=== PATIENT | male | born 1945 | race Caucasian/White ===

== ENCOUNTER → 2018-08-24 | Outpatient (CLI) | payer MEDICARE, OTHER ==
[~2018-08-24] MED LIST: ALLO100; ALLO300; Amlodipine Besyl5 MG PO; BYDUREON2 MG; BYDUREON2 MG SC; CEPH500; CEPH500 PO; CHOL10002 PO; CYAN1000 PO; Cinnamon500 MG; DIGO.25 PO; ELIQUIS2.5 MG PO; FERR325 PO; FISH1000; FURO40 PO; FURO80 PO; HYDR1TAB94; K-Dur20 MEQ PO; LAVAP17G; LISI20; LISI20 PO; METO25 PO; METO50; METO50 PO; Metoprolol Tar100 MG PO; Multiple Vitam1 EAC1 PO; NORT25 PO; POTA10T PO; TRAM50 PO; TRULICITY0.75 MG/0. SQ; Viagra100 MG PO; WARF5 PO; WARF7.5 PO; ZESTRIL40 MG PO; [UNRECOGNIZED DRUG - OTHER]; [UNRECOGNIZED DRUG - REMARK]
== END | disposition home or self-care (01) ==
LOC: LAB SHORT 17:19 → LAB EV 17:19
DX: R05 Cough (principal)
CPT/HCPCS: 83880

== ENCOUNTER 2018-09-09 19:22 | Emergency (ER) | payer MEDICARE, OTHER ==
[~2018-09-09] VITALS: Ht 177.8 cm; Wt 136.1 kg
[2018-09-09 20:12] LABS: BASOPHILS ABSOLUTE AUTO 0.03 K/mm3 (0.00-0.23); BASOPHILS PERCENT AUTO 0 % (0-2); EOSINOPHILS PERCENT AUTO 0 % (0-6); IMMATURE GRAN ABSOLUTE AUTO 0.11 K/mm3 (0.00-0.10); IMMATURE GRAN PERCENT AUTO 1 % (0-1); LYMPHOCYTES ABSOLUTE AUTO 0.79 K/mm3 (0.84-5.20); LYMPHOCYTES PERCENT AUTO 4 % (21-46); MONOCYTES ABSOLUTE AUTO 1.15 K/mm3 (0.16-1.47); MONOCYTES PERCENT AUTO 6 % (4-13); Mean Corpuscular HGB 30.4 pg (26.0-34.0); Mean Corpuscular HGB Conc 33.3 g/dL (31.5-36.5); Mean Corpuscular Volume 91 fL (80-100); Mean Platelet Volume 10.4 fL (9.1-12.4); NEUTROPHILS ABSOLUTE AUTO 18.74 K/mm3 (1.96-9.15); NEUTROPHILS PERCENT AUTO 90 % (41-73); Platelet Count 208 K/mm3 (150-400); RDW Coefficient Variation 15.7 % (11.7-14.2); RDW Standard Deviation 51.8 fL (35.1-46.3); Red Blood Cell Count 3.95 M/mm3 (4.30-5.90); White Blood Cell Count 20.82 K/mm3 (4.00-11.30)
[2018-09-09 20:30] LABS: Alanine Aminotransfer (ALT/SGP 20 U/L (12-78); Albumin, Blood 3.1 g/dL (3.4-5.0); Albumin/Globulin Ratio 0.6 (0.8-1.8); Alk Phos 102 U/L (50-136); Anion Gap 9 mmol/L (6-16); Aspartate Aminotrans (AST/SGOT 22 U/L (12-37); Blood Urea Nitrogen 23 mg/dL (8-24); Bun/Creatinine Ratio 30.1 (12.0-20.0); CO2, Blood 28 mmol/L (21-32); Calcium, Blood 8.9 mg/dL (8.5-10.1); Chloride, Blood 96 mmol/L (98-108); Creatinine, Blood 0.77 mg/dL (0.60-1.20); Globulin, Blood 5.1 g/dL (2.2-4.0); Glomerular Filtration Rate >60 (60-); Glucose, Blood 154 mg/dL (70-99); Potassium, Blood 3.5 mmol/L (3.5-5.5); Sodium, Blood 133 mmol/L (136-145); Total Protein, Blood 8.2 g/dL (6.4-8.2)
[2018-09-09 23:06] LABS: Source, Urine Clean Catch
[2018-09-09 23:10] LABS: Bilirubin, Urine Neg (Neg); Blood, Urine Neg (Neg); Glucose Qualitative, Urine Neg (Neg); Ketones, Urine Neg (Neg); Leukocyte Esterase, Urine 1+ (Neg); Nitrite, Urine Neg (Neg); Protein, Urine Neg (Neg); Urobilinogen, Urine NORM (Normal)
[2018-09-09 23:15] LABS: Appearance, Urine Clear (Clear); Color, Urine Yellow (P-Yellow)
[2018-09-09 23:17] LABS: Amorphous Light (0-Heavy); Bacteria Rare /hpf; Red Blood Cells, Urine Not Seen /hpf (0-2); Squamous Epithelial Cells Not Seen /hpf (Few)
[2018-09-09] MEDS ORDERED: Augmentin 500-1 EACH PO (23:44)
== END 2018-09-10 00:50 | disposition home or self-care (01) ==
LOC: ER 19:22
PROVIDERS: Physician Assistant
DX: J18.9 Pneumonia, unspecified organism (principal); R33.9 Retention of urine, unspecified; Z88.8 Allergy status to other drugs, medicaments and biological substances; Z79.899 Other long term (current) drug therapy; E11.9 Type 2 diabetes mellitus without complications; I10 Essential (primary) hypertension; E66.9 Obesity, unspecified
CPT/HCPCS: 51702; 51798; 71046; 80053; 81001; 85025; 94640

== ENCOUNTER 2018-11-11 21:32 | Inpatient (IN) | payer MEDICARE, OTHER ==
[~2018-11-11] VITALS: Ht 177.8 cm; Wt 136.4 kg
[~2018-11-11 21:32] MED LIST changes: -ALLO300; +ALLO300 PO; +Augmentin 500-1 EACH PO; -FERR325 PO; +Ferosul325 MG PO
[2018-11-11 21:53] LABS: BASOPHILS ABSOLUTE AUTO 0.02 K/mm3 (0.00-0.23); BASOPHILS PERCENT AUTO 0 % (0-2); EOSINOPHILS ABSOLUTE AUTO 0.01 K/mm3 (0.00-0.68); EOSINOPHILS PERCENT AUTO 0 % (0-6); Hematocrit 35.6 % (37.0-53.0); Hemoglobin 11.3 g/dL (13.5-17.5); IMMATURE GRAN ABSOLUTE AUTO 0.01 K/mm3 (0.00-0.10); IMMATURE GRAN PERCENT AUTO 0 % (0-1); LYMPHOCYTES ABSOLUTE AUTO 0.64 K/mm3 (0.84-5.20); LYMPHOCYTES PERCENT AUTO 13 % (21-46); MONOCYTES ABSOLUTE AUTO 0.66 K/mm3 (0.16-1.47); MONOCYTES PERCENT AUTO 13 % (4-13); Mean Corpuscular HGB Conc 31.7 g/dL (31.5-36.5); Mean Corpuscular Volume 94 fL (80-100); Mean Platelet Volume 10.7 fL (9.1-12.4); NEUTROPHILS ABSOLUTE AUTO 3.66 K/mm3 (1.96-9.15); NEUTROPHILS PERCENT AUTO 73 % (41-73); Platelet Count 135 K/mm3 (150-400); RDW Coefficient Variation 15.9 % (11.7-14.2); RDW Standard Deviation 55.3 fL (35.1-46.3); Red Blood Cell Count 3.77 M/mm3 (4.30-5.90)
[2018-11-11] MEDS ORDERED: PYRI100 PO (21:55)
[2018-11-11] MEDS ORDERED: ASCO500 PO (21:56)
[2018-11-11] MEDS ORDERED: TURMERIC500 M2 PO (21:56)
[2018-11-11] MEDS ORDERED: Fish Oil Conc1000 MG PO (21:56)
[2018-11-11] MEDS ORDERED: VITAMIN B-1100 MG PO (21:57)
[2018-11-11 22:08] LABS: Alanine Aminotransfer (ALT/SGP 23 U/L (12-78); Albumin, Blood 3.1 g/dL (3.4-5.0); Albumin/Globulin Ratio 0.7 (0.8-1.8); Alk Phos 69 U/L (50-136); Anion Gap 5 mmol/L (6-16); Aspartate Aminotrans (AST/SGOT 28 U/L (12-37); Bilirubin, Total 0.8 mg/dL (0.1-1.0); Blood Urea Nitrogen 17 mg/dL (8-24); Bun/Creatinine Ratio 19.5 (12.0-20.0); CO2, Blood 32 mmol/L (21-32); Calcium, Blood 8.3 mg/dL (8.5-10.1); Chloride, Blood 101 mmol/L (98-108); Creatinine, Blood 0.87 mg/dL (0.60-1.20); Globulin, Blood 4.4 g/dL (2.2-4.0); Glomerular Filtration Rate >60 (60-); Glucose, Blood 118 mg/dL (70-99); Potassium, Blood 3.2 mmol/L (3.5-5.5); Sodium, Blood 138 mmol/L (136-145); Total Protein, Blood 7.5 g/dL (6.4-8.2); Troponin I <0.015 ng/mL (0.000-0.040)
[2018-11-12] MEDS ORDERED: Aspir-Low81 MG PO (02:15)
[2018-11-12 04:28] LABS: Adenovirus Not Detected (NOT DETECT); Bordetella pertussis Not Detected (NOT DETECT); Chlamydophila pneumoniae Not Detected (NOT DETECT); Coronavirus 229E Not Detected (NOT DETECT); Coronavirus HKU1 Not Detected (NOT DETECT); Coronavirus NL63 Not Detected (NOT DETECT); Coronavirus OC43 Not Detected (NOT DETECT); Human Metapneumovirus Detected (NOT DETECT); Human Rhinovirus/Enterovirus Not Detected (NOT DETECT); Influenza A Not Detected (NOT DETECT); Influenza A/2009-H1 Not Detected (NOT DETECT); Influenza A/H1 Not Detected (NOT DETECT); Influenza A/H3 Not Detected (NOT DETECT); Influenza B Not Detected (NOT DETECT); Mycoplasma pneumoniae Not Detected (NOT DETECT); Parainfluenza Virus 1 Not Detected (NOT DETECT); Parainfluenza Virus 2 Not Detected (NOT DETECT); Parainfluenza Virus 3 Not Detected (NOT DETECT); Parainfluenza Virus 4 Not Detected (NOT DETECT); Respiratory Syncytial Virus Not Detected (NOT DETECT)
--- NOTE | 2018-11-12 04:29 | NUR ---
0115 73 Y/O MORBID OBESE MALE ADMITTED TO 313 PER STRETCHER FROM ER. PTS NOTED HAVE AUDIBLE WHEEZING WITH OCCASIONAL NON PRODUCTIVE COUGH. PTS HAS ONE MEDICATION THAT REQUIRES RECONCILITATION IN AM WITH LOCAL PHARMACY (METFORMIN). PTS BED LOW POSITION, CALL LIGHT AT SIDE, DROPLET PRECAUTIONS STARTED.
--- NOTE | 2018-11-12 04:31 | NUR ---
SUMMARY: PT RESTED COMFORTABLY THIS AM WITH HOB AT LOW FOWLERS WHILE WEARING BIPAP. PT DENIES PAIN OR NAUSEA. PTS BED LOW POSITION, CALL LIGHT AT SIDE.
--- NOTE | 2018-11-12 11:33 | NUR ---
Patient is lying in bed and alert when I entered the patient's room. Therapeutic alliance is easily established and so patient openly shares about his medical conditions, his grief from his 's recent and his spiritual journey. I listened empathically, facilitated a life review, explored patient's belief system, provided grief/emotional support, reinforced helpful attitudes and practices, provided companionship and provided prayer. Patient responded well and showed signs of restored cem. Patient thanked me for the visit.
--- NOTE | 2018-11-12 16:53 | NUR ---
SHIFT SUMMARY NO CHANGES IN ASSESSMENT AT THIS TIME. VSS. PT NAPPED MOST THE DAY. PT PLEASANT & COOPERATIVE. PT UP IN RECLINER FOR MEALS. WILL CONTINUE TO MONITOR UNTIL TURNOVER IS COMPLETE.
--- NOTE | 2018-11-13 05:59 | NUR ---
SUMMARY: 73 Y/O OBESE MALE RESTED COMFORTABLY ALL EVENING WHILE WEARING BIPAP. PT DENIES PAIN OR NAUSEA. PT DENIES PAIN OR NAUSEA. PTS BED IN LOW POSITION, CALL LIGHT AT SIDE. PT TELEMETRY REFLECTS A-FIB, LUNG SOUNDS ARE COARSE THROUGHOUT WITH NO COUGH NOTED OR VOICED.
--- NOTE | 2018-11-13 10:44 | NUR ---
PT REFUSED REGULAR IV ROTATION. IV PATENT.
--- NOTE | 2018-11-13 17:36 | NUR ---
SHIFT SUMMARY NO CHANGES IN ASSESSMENT AT THIS TIME. VSS. PT C/O COUGH. PT EDUCATED TO SPIT OUT WHATEVER HE IS ABLE TO GET UP. PT ALSO ENCOURAGED TO SIT UPRIGHT TO ASSIST WITH BREATHING & URGE OR COUGH. WILL CONTINUE TO MONITOR UNTIL TURNOVER IS COMPLETE.
--- NOTE | 2018-11-14 04:57 | NUR ---
SUMMARY: 73 Y/O OBESE MALE RESTED COMFORTABLY ALL EVENING WHILE WEARING BIPAP WHILE O2 SATURATION AT 92%. PT DENIES PAIN OR NAUSEA. PT HAS NO COUGH ALL NIGHT. PTS BED IN LOW POSITION, CALL LIGHT AT SIDE.
[2018-11-14 06:33] LABS: Hematocrit 36.7 % (37.0-53.0); Hemoglobin 11.6 g/dL (13.5-17.5); Mean Corpuscular HGB 30.1 pg (26.0-34.0); Mean Corpuscular HGB Conc 31.6 g/dL (31.5-36.5); Mean Corpuscular Volume 95 fL (80-100); Platelet Count 176 K/mm3 (150-400); RDW Coefficient Variation 15.9 % (11.7-14.2); RDW Standard Deviation 55.6 fL (35.1-46.3); Red Blood Cell Count 3.85 M/mm3 (4.30-5.90); White Blood Cell Count 5.05 K/mm3 (4.00-11.30)
[2018-11-14 06:55] LABS: Albumin, Blood 3.1 g/dL (3.4-5.0); Anion Gap 4 mmol/L (6-16); Blood Urea Nitrogen 27 mg/dL (8-24); Bun/Creatinine Ratio 32.3 (12.0-20.0); CO2, Blood 37 mmol/L (21-32); Chloride, Blood 102 mmol/L (98-108); Creatinine, Blood 0.84 mg/dL (0.60-1.20); Glomerular Filtration Rate >60 (60-); Glucose, Blood 86 mg/dL (70-99); Phosphorus, Blood 3.2 mg/dL (2.5-4.9); Potassium, Blood 3.6 mmol/L (3.5-5.5); Sodium, Blood 143 mmol/L (136-145)
[2018-11-14 06:56] LABS: BASOPHILS ABSOLUTE MAN 0.05 K/mm3 (0.00-0.23); BASOPHILS PERCENT MAN 1 % (0-2); EOSINOPHILS PERCENT MAN 0 % (0-6); LYMPHOCYTES % ATYPICAL MANUAL 3 % (0-0); LYMPHOCYTES ABSOLUTE MAN 1.26 K/mm3 (0.84-5.20); LYMPHOCYTES PERCENT MAN 22 % (21-46); MONOCYTES PERCENT MAN 12 % (4-13); MYELOCYTE ABSOLUTE MAN 0.05 K/mm3 (0.00-0.00); MYELOCYTE PERCENT MAN 1 % (0-0); NEUTROPHILS ABSOLUTE MAN 3.08 K/mm3 (1.96-9.15); SEG NEUTROPHILS PERCENT MAN 61 % (41-73); TOTAL CELLS COUNTED 100
[2018-11-14] MEDS ORDERED: LISI5 PO (10:41)
[2018-11-14] MEDS ORDERED: CEFU500T30 PO (10:42)
[2018-11-14] MEDS ORDERED: SPIR25 PO (10:42)
--- NOTE | 2018-11-14 11:46 | NUR ---
PT DISCHARGED PT DISCHARGED AT 1146. PT IN STABLE CONDITION WITH VSS. PT EDUCATED ON DC INSTRUCTIONS & STATED NO FURTHER QUESTIONS. IV REMOVED & INTACT. PT WHEELED OUT BY ESCORT & DRIVEN HOME BY CAREGIVER.
== END 2018-11-14 11:48 | disposition home or self-care (01) | DRG 291 ==
LOC: ER 21:32 → MEDS 11-12 00:18 → ENPENDDIS 11-14 10:23 → MEDS 11-14 11:48
PROVIDERS: Emergency Medicine; Family Medicine; ADMIT Family Medicine
DX: I11.0 Hypertensive heart disease with heart failure (principal); J96.01 Acute respiratory failure with hypoxia; J18.1 Lobar pneumonia, unspecified organism; Z68.41 Body mass index [BMI] 40.0-44.9, adult; J44.1 Chronic obstructive pulmonary disease with (acute) exacerbation; J44.0 Chronic obstructive pulmonary disease with (acute) lower respiratory infection; I50.33 Acute on chronic diastolic (congestive) heart failure; D64.9 Anemia, unspecified; D69.6 Thrombocytopenia, unspecified; E11.9 Type 2 diabetes mellitus without complications; E66.01 Morbid (severe) obesity due to excess calories; E87.6 Hypokalemia; I25.10 Atherosclerotic heart disease of native coronary artery without angina pectoris; I48.91 Unspecified atrial fibrillation; Z95.1 Presence of aortocoronary bypass graft; G47.30 Sleep apnea, unspecified; J20.9 Acute bronchitis, unspecified; Z91.81 History of falling
CPT/HCPCS: 36415; 71046; 80053; 80069; 82947; 83880; 84145; 84484; 85025; 87486; 87581; 87633; 87798; 93005; 93010; 94640; 94660; 94760; 94762; 96374; 99285-25; J1650; J1815; J1940; J2930

== ENCOUNTER 2019-12-28 14:34 | Observation (INO) | payer MEDICARE, OTHER ==
[~2019-12-28] VITALS: Ht 177.8 cm; Wt 135.7 kg
[~2019-12-28 14:34] MED LIST changes: -ALLO300 PO; -ASPIR 8181 M1 PO; -Amlodipine Besyl5 MG PO; -FURO80 PO; -K-Dur20 MEQ PO; -LISI5 PO; -METO25 PO; -NORTRIPTYLINE H50 MG PO; -Nortriptyline H50 MG PO; -TRULICITY0.75 MG/01 SC
[2019-12-28] MEDS ORDERED: NORTRIPTYLINE H50 MG PO (15:02)
[2019-12-28 15:21] LABS: BASOPHILS ABSOLUTE AUTO 0.06 K/mm3 (0.00-0.23); BASOPHILS PERCENT AUTO 1 % (0-2); EOSINOPHILS ABSOLUTE AUTO 0.25 K/mm3 (0.00-0.68); EOSINOPHILS PERCENT AUTO 4 % (0-6); Hematocrit 36.1 % (37.0-53.0); Hemoglobin 11.4 g/dL (13.5-17.5); IMMATURE GRAN ABSOLUTE AUTO 0.01 K/mm3 (0.00-0.10); IMMATURE GRAN PERCENT AUTO 0 % (0-1); LYMPHOCYTES ABSOLUTE AUTO 1.06 K/mm3 (0.84-5.20); LYMPHOCYTES PERCENT AUTO 17 % (21-46); MONOCYTES PERCENT AUTO 11 % (4-13); Mean Corpuscular HGB Conc 31.6 g/dL (31.5-36.5); Mean Platelet Volume 12.1 fL (9.1-12.4); NEUTROPHILS ABSOLUTE AUTO 4.34 K/mm3 (1.96-9.15); NEUTROPHILS PERCENT AUTO 68 % (41-73); Platelet Count 141 K/mm3 (150-400); RDW Coefficient Variation 16.2 % (11.7-14.2); RDW Standard Deviation 56.3 fL (35.1-46.3); White Blood Cell Count 6.42 K/mm3 (4.00-11.30)
[2019-12-28 15:23] LABS: Mean Corpuscular Volume 95 fL (80-100)
[2019-12-28 15:35] LABS: Anion Gap 5 mmol/L (6-16); Blood Urea Nitrogen 36 mg/dL (8-24); CO2, Blood 31 mmol/L (21-32); Chloride, Blood 106 mmol/L (98-108); Glomerular Filtration Rate >60 (60-); Glucose, Blood 97 mg/dL (70-99); Potassium, Blood 3.7 mmol/L (3.5-5.5); Sodium, Blood 142 mmol/L (136-145); Troponin I <0.015 ng/mL (0.000-0.040)
[2019-12-28 16:20] LABS: Free Thyroxine 0.96 ng/dL (0.70-1.60)
[2019-12-28 16:22] LABS: Thyroid Stimulating Hormone 2.62 uIU/mL (0.360-4.800)
[2019-12-28] MEDS ORDERED: K-Dur20 MEQ PO (16:35)
[2019-12-28] MEDS ORDERED: TRULICITY0.75 MG/01 SC (16:35)
[2019-12-28] MEDS ORDERED: FURO80 PO (16:35)
[2019-12-28] MEDS ORDERED: Amlodipine Besyl5 MG PO (16:36)
[2019-12-28] MEDS ORDERED: Nortriptyline H50 MG PO (16:36)
[2019-12-28] MEDS ORDERED: LISI5 PO (16:37)
[2019-12-28] MEDS ORDERED: METO25 PO (16:40)
[2019-12-28] MEDS ORDERED: ALLO300 PO (16:40)
[2019-12-28] MEDS ORDERED: ASPIR 8181 M1 PO (16:58)
--- NOTE | 2019-12-28 19:23 | NUR ---
PT ARRIVED TO THE UNIT VIA STRETCHER PT WAS ABLE TO TRANSFER 1PA ASSISTS TO BED. HRR AFIB 40'S-50'S, PT IS HERE FOR BRADYCARDIA. AFEBRILE, SATS ABOVE 95% ON ROOMAIR. PT IS ALERT AND ORIENTED X4, CONTINENT OF BOTH BOWEL AND BLADDER. 1+ PITTING EDEMA ON BLE. PT ABLE TO MAKE NEEDS KNOWN, USES CALL LIGHT APPROPRIATELY, REPORT GIVEN TO BRICK HANDLER NURSE
[2019-12-29 04:37] LABS: BASOPHILS ABSOLUTE AUTO 0.05 K/mm3 (0.00-0.23); BASOPHILS PERCENT AUTO 1 % (0-2); EOSINOPHILS ABSOLUTE AUTO 0.31 K/mm3 (0.00-0.68); EOSINOPHILS PERCENT AUTO 5 % (0-6); Hematocrit 35.4 % (37.0-53.0); Hemoglobin 11.2 g/dL (13.5-17.5); IMMATURE GRAN ABSOLUTE AUTO 0.02 K/mm3 (0.00-0.10); IMMATURE GRAN PERCENT AUTO 0 % (0-1); LYMPHOCYTES ABSOLUTE AUTO 1.08 K/mm3 (0.84-5.20); LYMPHOCYTES PERCENT AUTO 19 % (21-46); MONOCYTES ABSOLUTE AUTO 0.61 K/mm3 (0.16-1.47); MONOCYTES PERCENT AUTO 11 % (4-13); Mean Corpuscular HGB 29.6 pg (26.0-34.0); Mean Corpuscular HGB Conc 31.6 g/dL (31.5-36.5); Mean Corpuscular Volume 94 fL (80-100); Mean Platelet Volume 11.9 fL (9.1-12.4); NEUTROPHILS ABSOLUTE AUTO 3.64 K/mm3 (1.96-9.15); NEUTROPHILS PERCENT AUTO 64 % (41-73); Platelet Count 129 K/mm3 (150-400); RDW Coefficient Variation 15.9 % (11.7-14.2); RDW Standard Deviation 54.6 fL (35.1-46.3); Red Blood Cell Count 3.78 M/mm3 (4.30-5.90); White Blood Cell Count 5.71 K/mm3 (4.00-11.30)
[2019-12-29 05:03] LABS: Magnesium, Blood 2.3 mg/dL (1.6-2.4); Very Low Density Lipoprot Chol 13 mg/dL (6-32)
[2019-12-29 05:05] LABS: Alanine Aminotransfer (ALT/SGP 16 U/L (12-78); Albumin, Blood 3.4 g/dL (3.4-5.0); Albumin/Globulin Ratio 0.8 (0.8-1.8); Alk Phos 74 U/L (50-136); Anion Gap 5 mmol/L (6-16); Aspartate Aminotrans (AST/SGOT 17 U/L (12-37); Bilirubin, Total 0.7 mg/dL (0.1-1.0); Blood Urea Nitrogen 32 mg/dL (8-24); Bun/Creatinine Ratio 32.1 (12.0-20.0); CHOL/HDL RATIO 4.1; CO2, Blood 32 mmol/L (21-32); Calcium, Blood 8.9 mg/dL (8.5-10.1); Chloride, Blood 105 mmol/L (98-108); Cholesterol 128 mg/dL (50-200); Glomerular Filtration Rate >60 (60-); Glucose, Blood 84 mg/dL (70-99); HDL Cholesterol 31 mg/dL (>39); LDL/HDL RATIO 2.7; Low Density Lipoprotein Chol 84 mg/dL (0-110); Potassium, Blood 3.9 mmol/L (3.5-5.5); Sodium, Blood 142 mmol/L (136-145); Total Protein, Blood 7.4 g/dL (6.4-8.2); Triglycerides 67 mg/dL (30-160)
--- NOTE | 2019-12-29 06:31 | NUR ---
patient that came in for symptomatic bradycardia has remained stable throughout the shift with no recurrent symptoms. The patient was educated on signs and symptoms to report to the clinical staff in the event that he experiences such symptoms. The patient remained in stable bradycardia for the entire shift without even any interventions. A definitive plan for this patient is still pending but per the patient the possibility of a pacemaker is in his future plan.
--- NOTE | 2019-12-29 11:34 | NUR ---
ECHOCARDIOGRAM COMPLETE
--- NOTE | 2019-12-29 18:16 | NUR ---
SHIFT SUMMARY; A/A/OX4 THROUGHOUT SHIFT. ECHO COMPLETED TODAY. VSS, NO EPISODES OF BRADYCARDIA DURING SHIFT. AMBULATORY WITH 1 PERSON ASSIST IN ROOM. WILL CONTINUE TO MONITOR UNTIL CHANGE OF SHIFT.
[2019-12-30 04:00] LABS: BASOPHILS ABSOLUTE AUTO 0.06 K/mm3 (0.00-0.23); BASOPHILS PERCENT AUTO 1 % (0-2); EOSINOPHILS PERCENT AUTO 5 % (0-6); Hematocrit 38.9 % (37.0-53.0); Hemoglobin 12.3 g/dL (13.5-17.5); IMMATURE GRAN ABSOLUTE AUTO 0.03 K/mm3 (0.00-0.10); IMMATURE GRAN PERCENT AUTO 0 % (0-1); LYMPHOCYTES ABSOLUTE AUTO 1.14 K/mm3 (0.84-5.20); LYMPHOCYTES PERCENT AUTO 17 % (21-46); MONOCYTES ABSOLUTE AUTO 0.81 K/mm3 (0.16-1.47); MONOCYTES PERCENT AUTO 12 % (4-13); Mean Corpuscular HGB 29.8 pg (26.0-34.0); Mean Corpuscular HGB Conc 31.6 g/dL (31.5-36.5); Mean Corpuscular Volume 94 fL (80-100); Mean Platelet Volume 11.7 fL (9.1-12.4); NEUTROPHILS ABSOLUTE AUTO 4.34 K/mm3 (1.96-9.15); NEUTROPHILS PERCENT AUTO 65 % (41-73); Platelet Count 113 K/mm3 (150-400); RDW Coefficient Variation 15.9 % (11.7-14.2); RDW Standard Deviation 54.6 fL (35.1-46.3); Red Blood Cell Count 4.13 M/mm3 (4.30-5.90); White Blood Cell Count 6.68 K/mm3 (4.00-11.30)
[2019-12-30 04:24] LABS: Albumin, Blood 3.7 g/dL (3.4-5.0); Anion Gap 4 mmol/L (6-16); Blood Urea Nitrogen 25 mg/dL (8-24); Bun/Creatinine Ratio 26.1 (12.0-20.0); CO2, Blood 35 mmol/L (21-32); Calcium, Blood 9.7 mg/dL (8.5-10.1); Chloride, Blood 101 mmol/L (98-108); Creatinine, Blood 0.96 mg/dL (0.60-1.20); Glomerular Filtration Rate >60 (60-); Glucose, Blood 85 mg/dL (70-99); Magnesium, Blood 2.2 mg/dL (1.6-2.4); Sodium, Blood 140 mmol/L (136-145)
[2019-12-30 04:26] LABS: Troponin I <0.015 ng/mL (0.000-0.040)
--- NOTE | 2019-12-30 05:02 | NUR ---
assumed care at 7 PM, patient initially admitted for symptomatic bradycardia. No acute changes over night, patient's plan is to go home in the morning. patient remained stable throughout the shift, denies chest pain, chest pressure, shortness of breath
--- NOTE | 2019-12-30 07:16 | NUR ---
ASSUMED PATIENT CARE. PATIENT RESTING COMFORTABLY IN BED, CONVERSING WITH NURSING STAFF. NO SIGNS OF ACUTE DISTRESS, WCTM.
--- NOTE | 2019-12-30 14:02 | NUR ---
PATIENT PROVIDED DISCHARGE INFO REGARDING REASONS TO RETURN TO THE HOSPITAL, MEDICATION INFO, AND FOLLOW UP PLANS. PATIENT VERBALIZED UNDERSTANDING. NO SIGNS OF ACUTE DISTRESS.
== END 2019-12-30 14:37 | disposition home or self-care (01) ==
LOC: ER 14:34 → PCU 14:35
PROVIDERS: Internal Medicine Gastroenterology; Student in an Organized Health Care Education/Training Program; ADMIT Internal Medicine
DX: R00.1 Bradycardia, unspecified (principal); R42 Dizziness and giddiness; E11.40 Type 2 diabetes mellitus with diabetic neuropathy, unspecified; E66.01 Morbid (severe) obesity due to excess calories; G47.33 Obstructive sleep apnea (adult) (pediatric); I25.10 Atherosclerotic heart disease of native coronary artery without angina pectoris; I11.0 Hypertensive heart disease with heart failure; I48.91 Unspecified atrial fibrillation; I50.30 Unspecified diastolic (congestive) heart failure; Z99.89 Dependence on other enabling machines and devices; Z88.8 Allergy status to other drugs, medicaments and biological substances; Z79.82 Long term (current) use of aspirin; Z79.899 Other long term (current) drug therapy; Z68.41 Body mass index [BMI] 40.0-44.9, adult
CPT/HCPCS: 36415; 80048; 80053; 80061; 80069; 82947; 83036; 83735; 83880; 84439; 84443; 84484; 85025; 93005; 93010; 94762; 96372; 99285-25; A9270; A9270-GY; C8923; G0378; J1650

== ENCOUNTER → 2019-12-28 | Outpatient (CLI) | payer MEDICARE, OTHER ==
[~2019-12-28] MED LIST changes: +ASCO500 PO; +ASPIR 8181 M1 PO; +CEFU500T30 PO; +Fish Oil Conc1000 MG PO; +LISI5 PO; -NORT25 PO; +NORTRIPTYLINE H50 MG PO; +Nortriptyline H50 MG PO; +PYRI100 PO; +SPIR25 PO; +TRULICITY0.75 MG/01 SC; +TURMERIC500 M2 PO; +VITAMIN B-1100 MG PO
[2019-12-28 14:33] LABS: BASOPHILS ABSOLUTE AUTO 0.06 K/mm3 (0.00-0.23); BASOPHILS PERCENT AUTO 1 % (0-2); EOSINOPHILS ABSOLUTE AUTO 0.22 K/mm3 (0.00-0.68); EOSINOPHILS PERCENT AUTO 4 % (0-6); Hematocrit 34.3 % (37.0-53.0); Hemoglobin 11.4 g/dL (13.5-17.5); IMMATURE GRAN ABSOLUTE AUTO 0.01 K/mm3 (0.00-0.10); IMMATURE GRAN PERCENT AUTO 0 % (0-1); LYMPHOCYTES ABSOLUTE AUTO 1.02 K/mm3 (0.84-5.20); LYMPHOCYTES PERCENT AUTO 17 % (21-46); MONOCYTES ABSOLUTE AUTO 0.58 K/mm3 (0.16-1.47); MONOCYTES PERCENT AUTO 10 % (4-13); Mean Corpuscular HGB 30.6 pg (26.0-34.0); Mean Corpuscular HGB Conc 33.2 g/dL (31.5-36.5); Mean Corpuscular Volume 92 fL (80-100); Mean Platelet Volume 12.3 fL (9.1-12.4); NEUTROPHILS ABSOLUTE AUTO 4.18 K/mm3 (1.96-9.15); NEUTROPHILS PERCENT AUTO 69 % (41-73); Platelet Count 140 K/mm3 (150-400); RDW Coefficient Variation 16.3 % (11.7-14.2); RDW Standard Deviation 55.1 fL (35.1-46.3); Red Blood Cell Count 3.73 M/mm3 (4.30-5.90); White Blood Cell Count 6.07 K/mm3 (4.00-11.30)
[2019-12-28 14:47] LABS: Anion Gap 9 mmol/L (6-16); Blood Urea Nitrogen 36 mg/dL (8-24); Bun/Creatinine Ratio 26.7 (12.0-20.0); CO2, Blood 30 mmol/L (21-32); Calcium, Blood 9.4 mg/dL (8.5-10.1); Chloride, Blood 106 mmol/L (98-108); Creatinine, Blood 1.35 mg/dL (0.60-1.20); Glomerular Filtration Rate 51 (60-); Glucose, Blood 108 mg/dL (70-99); Potassium, Blood 3.8 mmol/L (3.5-5.5); Sodium, Blood 145 mmol/L (136-145); Thyroid Stimulating Hormone 2.888 uIU/mL (0.360-4.800)
[2019-12-28 14:48] LABS: Troponin I <0.017 ng/mL (0.000-0.040)
== END | disposition home or self-care (01) ==
LOC: LAB SHORT 14:23 → LAB EV 14:23
PROVIDERS: Physician Assistant
DX: R42 Dizziness and giddiness (principal); R53.83 Other fatigue
CPT/HCPCS: 80048; 83880; 84443; 84484; 85025

== ENCOUNTER 2020-11-28 16:15 | Inpatient (IN) | payer MEDICARE ==
[~2020-11-28] VITALS: Ht 177.8 cm; Wt 130.3 kg
[~2020-11-28 16:15] MED LIST changes: +ALLO300 PO; +ASPIR 8181 M1 PO; +AZIT500 PO; +Amlodipine Besyl5 MG PO; +CEFP200 PO; +FURO80 PO; +K-Dur20 MEQ PO; +LISI5 PO; +METO25 PO; +NORTRIPTYLINE H50 MG PO; +Nortriptyline H50 MG PO; +TRULICITY0.75 MG/01 SC
[2020-11-28 16:45] LABS: BASOPHILS ABSOLUTE AUTO 0.06 K/mm3 (0.00-0.23); BASOPHILS PERCENT AUTO 1 % (0-2); EOSINOPHILS ABSOLUTE AUTO 0.24 K/mm3 (0.00-0.68); EOSINOPHILS PERCENT AUTO 2 % (0-6); Hematocrit 34.2 % (37.0-53.0); Hemoglobin 10.8 g/dL (13.5-17.5); IMMATURE GRAN ABSOLUTE AUTO 0.09 K/mm3 (0.00-0.10); IMMATURE GRAN PERCENT AUTO 1 % (0-1); LYMPHOCYTES ABSOLUTE AUTO 0.77 K/mm3 (0.84-5.20); LYMPHOCYTES PERCENT AUTO 7 % (21-46); MONOCYTES ABSOLUTE AUTO 0.86 K/mm3 (0.16-1.47); MONOCYTES PERCENT AUTO 8 % (4-13); Mean Corpuscular HGB 28.3 pg (26.0-34.0); Mean Corpuscular HGB Conc 31.6 g/dL (31.5-36.5); Mean Corpuscular Volume 90 fL (80-100); Mean Platelet Volume 10.9 fL (9.1-12.4); NEUTROPHILS ABSOLUTE AUTO 9.02 K/mm3 (1.96-9.15); NEUTROPHILS PERCENT AUTO 82 % (41-73); Platelet Count 187 K/mm3 (150-400); RDW Coefficient Variation 16.1 % (11.7-14.2); RDW Standard Deviation 52.9 fL (35.1-46.3); Red Blood Cell Count 3.81 M/mm3 (4.30-5.90); White Blood Cell Count 11.04 K/mm3 (4.00-11.30)
[2020-11-28 17:01] LABS: Alanine Aminotransfer (ALT/SGP 17 U/L (12-78); Albumin, Blood 3.4 g/dL (3.4-5.0); Albumin/Globulin Ratio 0.7 (0.8-1.8); Alk Phos 69 U/L (50-136); Anion Gap 2 mmol/L (6-16); Aspartate Aminotrans (AST/SGOT 22 U/L (12-37); Bilirubin, Total 0.3 mg/dL (0.1-1.0); Blood Urea Nitrogen 33 mg/dL (8-24); Bun/Creatinine Ratio 28.9 (12.0-20.0); CO2, Blood 34 mmol/L (21-32); Chloride, Blood 106 mmol/L (98-108); Creatinine, Blood 1.14 mg/dL (0.60-1.20); Globulin, Blood 4.6 g/dL (2.2-4.0); Glomerular Filtration Rate >60 (60-); Glucose, Blood 116 mg/dL (70-99); Potassium, Blood 4.2 mmol/L (3.5-5.5); Sodium, Blood 142 mmol/L (136-145); Troponin I <0.015 ng/mL (0.000-0.040)
[2020-11-28 21:45] LABS: International Normalized Ratio 1.14; Prothrombin Time Results 12.2 Sec (9.7-11.5)
[2020-11-28 22:21] LABS: SARS-Cov-2 (COVID-19) PCR, MMC NEGATIVE (NEGATIVE)
--- NOTE | 2020-11-28 23:15 | NUR ---
PT ARRIVES TO ICU 14 VIA BED FROM [facility] [employer] FOR TRANSVENOUS PACEMAKER PLACEMENT. DRESSING IS NOTED TO RIGHT IJ, MEASUREMENT OF 55 VERIFIED WITH [employer] OFFICER TERESA MILLAN AT BEDSIDE. SETTINGS ARE NOTED 60/MIN, OUTPUT 10, SENSITIVITY 2, PT IS 100% PACED ON ARRIVAL TO UNIT. HE STATES THAT HE WAS SHOPPING PRIOR TO ARRIVAL TO ER, AND THAT HE FELL, RETROSPECTIVELY HE STATES THAT YES, HE PROBABLY DID LOSE CONSCIOUSNESS ALTHOUGH HE DID NOT BELIEVE SO AT THE TIME. HIS CHIEF COMPLAINT ON ARRIVAL TO THE ICU IS THAT HE FEELS THIRSTY, WOULD LIKE A PEPSI, AND THAT HE IS HAVING RIGHT KNEE PAIN, HE BELIEVES THAT HE MAY HAVE LANDED ON IT AT THE STORE WHEN HE FELL, THERE IS A PINK AREA OVER RIGHT KNEE. PRESSURES ARE IMPROVED FROM ER DOCUMENTATION, LOWER EXTREMITY PULSES ARE FAINT BILAT. HE IS QUITE CONVERSATIONAL AND STATES THAT HE WAS JUST "IN TO SEE YOU ALL" A COUPLE OF WEEKS AGO FOR PNEUMONIA, HE ALSO STATES THAT HE HAS BEEN SWABBED FOR COVID SEVERAL TIMES IN THE RECENT WEEKS. LUNGS ARE CLEAR WITH DIM BASES BILAT, SATS ARE HIGH 90S WITH OXYGEN VIA NASAL CANNULA AT 4 L/MIN, TITRATED DOWN THROUGHOUT ASSESSMENT TO 2 L/MIN AND SATS ARE MAINTAINING STABLE. RT ARRIVES TO BEDSIDE FOR HOME CPAP USE, PT STATES THAT HIS CPAP IS NOT HERE AND HE WOULD BE WILLING TO USE HOSPITAL CPAP MACHINE.
[2020-11-29 03:24] LABS: BASOPHILS ABSOLUTE AUTO 0.04 K/mm3 (0.00-0.23); BASOPHILS PERCENT AUTO 0 % (0-2); EOSINOPHILS ABSOLUTE AUTO 0.14 K/mm3 (0.00-0.68); EOSINOPHILS PERCENT AUTO 1 % (0-6); Hematocrit 30.5 % (37.0-53.0); IMMATURE GRAN ABSOLUTE AUTO 0.03 K/mm3 (0.00-0.10); IMMATURE GRAN PERCENT AUTO 0 % (0-1); LYMPHOCYTES ABSOLUTE AUTO 0.59 K/mm3 (0.84-5.20); LYMPHOCYTES PERCENT AUTO 5 % (21-46); MONOCYTES ABSOLUTE AUTO 0.99 K/mm3 (0.16-1.47); MONOCYTES PERCENT AUTO 8 % (4-13); Mean Corpuscular HGB 29.1 pg (26.0-34.0); Mean Corpuscular HGB Conc 32.8 g/dL (31.5-36.5); Mean Corpuscular Volume 89 fL (80-100); Mean Platelet Volume 10.9 fL (9.1-12.4); NEUTROPHILS ABSOLUTE AUTO 10.13 K/mm3 (1.96-9.15); NEUTROPHILS PERCENT AUTO 85 % (41-73); Platelet Count 158 K/mm3 (150-400); RDW Coefficient Variation 16.2 % (11.7-14.2); RDW Standard Deviation 52.4 fL (35.1-46.3); Red Blood Cell Count 3.44 M/mm3 (4.30-5.90); White Blood Cell Count 11.92 K/mm3 (4.00-11.30)
[2020-11-29 03:43] LABS: Alanine Aminotransfer (ALT/SGP 16 U/L (12-78); Albumin, Blood 3.1 g/dL (3.4-5.0); Albumin/Globulin Ratio 0.7 (0.8-1.8); Alk Phos 58 U/L (50-136); Anion Gap 2 mmol/L (6-16); Aspartate Aminotrans (AST/SGOT 13 U/L (12-37); Bilirubin, Total 0.7 mg/dL (0.1-1.0); Blood Urea Nitrogen 30 mg/dL (8-24); Bun/Creatinine Ratio 26.3 (12.0-20.0); CHOL/HDL RATIO 3.2; CO2, Blood 31 mmol/L (21-32); Calcium, Blood 8.7 mg/dL (8.5-10.1); Chloride, Blood 107 mmol/L (98-108); Cholesterol 103 mg/dL (50-200); Creatinine, Blood 1.14 mg/dL (0.60-1.20); Globulin, Blood 4.2 g/dL (2.2-4.0); Glomerular Filtration Rate >60 (60-); Glucose, Blood 132 mg/dL (70-99); HDL Cholesterol 32 mg/dL (>39); LDL/HDL RATIO 1.8; Low Density Lipoprotein Chol 59 mg/dL (0-110); Potassium, Blood 4.1 mmol/L (3.5-5.5); Sodium, Blood 140 mmol/L (136-145); Total Protein, Blood 7.3 g/dL (6.4-8.2); Triglycerides 62 mg/dL (30-160); Very Low Density Lipoprot Chol 12 mg/dL (6-32)
--- NOTE | 2020-11-29 05:57 | NUR ---
PT AWAKE MOST OF THIS SHIFT AFTER ADMISSION. HE CONTINUES WITH TRANSVENOUS PACEMAKER IN PLACE AND IS TOLERATING WELL, HE CONTINUES TO FREQUENTLY REQUIRE PACING TO MAINTAIN AT LEAST 60 BPM HOWEVER HAS BEEN NOTED TO HAVE HEART RATE INCREASES TO THE MID 70S. PRESSURES REMAIN IMPROVED FROM ARRIVAL TO ER. HE STATES THAT PAIN TO HIS RIGHT KNEE IS THE GREATEST AND THAT HE HAS HAD TO HAVE INJECTIONS IN THAT KNEE FOR COMFORT IN THE PAST, HE ALSO STATES THAT HE HAS PAIN INTERMITTENTLY TO LEFT KNEE AND BILATERAL SHOULDERS, ROXYCODONE HAS BEEN ADMINISTERED X 2 THIS SHIFT. PT HAS STATED CONCERN REGARDING BOWEL CARE HE STATES THAT IT HAS ALREADY BEEN 2 DAYS SINCE HIS LAST BM, WILL REQUEST BOWEL CARE ORDERS. NONPHARMACOLOGIC INTERVENTIONS FOR PAIN CONTROL HAVE INCLUDED POSITIONING TO RIGHT KNEE, ICE PACK AND ELEVATION, PT REPORTS THE GREATEST NONPHARMACOLOGIC RELIEF WITH THE USE OF THE ICE PACK. LUNGS REMAIN CLEAR/DIM AND SATS ARE MAINTAINING WITH USE OF CPAP.
--- NOTE | 2020-11-29 08:59 | NUR ---
CARE ASSUMED OF PT THIS AM AT 0700. PT SLEEPING W CPAP ON 1/2L BLEED IN O2. PT C/O 3/10 R KNEE. R KNEE ELEVATED W ICE PACK. R KNEE SWOLLEN. BILAT LOWER EXT WARM AND PINK W GOOD CAP REFILL. SMALL SORE TO R MIDDLE TOE NOTED/BLACK. PT ALSO C/O SOME MILD NECK AND RIB FROM FALL YESTERDAY. PT SLIGHTLY CONFUSED UPON WAKING BUT RE-ORIENTED WELL. PT HAS TRANSVENOUS PACER TO RIJ. RATE SET AT 60, OUTPUT 10, SEN 2. PT'S RATE 70-80'S AFIB W MULTIPLE PVC'S, OCCASIONALLY PACED. BP STABLE. PACER AT 55CM AND SECURED WELL TO RIGHT NECK. PT WAS KEPT NPO THIS AM FOR PERM. PACER PLACEMENT. DR HEDRICK IN TO SEE PT AT 0845. PACER RATE DECREASED TO [address] VAIL. PT'S RATE IS 60-70 W OCC PACER SPIKES. PT WILL BE MONITORED TODAY W TRANSVENOUS PACER TODAY, IF HEART RATE/RHTHYM REMAINS STABLE PT MAY NOT NEED PERM PACER. INFORMATION AND DATA ARCHITECT ANALYST AT BEDSIDE TO EVALUATE A.S.
--- NOTE | 2020-11-29 09:36 | NUR ---
DR MO IN TO SEE PT. ECHO COMPLETE. DIET ORDERED PER DR HEDRICK.
--- NOTE | 2020-11-29 10:29 | NUR ---
PT GIVEN SMALL SIP OF WATER W PAIN MEDICATION FOR PAIN 03/19 TO RIGHT KNEE. PT CONT TO COUGH, WET COUGH. PT W HEMOPTYSIS, MORE THAN JUST A STREAK OF BLOOD. DR MO CALLED. STAT CHEST XRAY ORDERED. H&H ORDERED FOR 1500. PT IS ALSO HYPOTENSIVE W MAP >60. DR KING TO BE CONSULTED
--- NOTE | 2020-11-29 10:52 | NUR ---
DR VAIL CALLED AND UPDATED. HEPARIN TO BE HELD FOR NOW. CHEST XRAY COMPLETED.
--- NOTE | 2020-11-29 11:02 | NUR ---
XRAYS OF R KNEE COMPLETED. DR KING HAS BEEN UPDATED REGARDING CONSULT.
--- NOTE | 2020-11-29 13:03 | NUR ---
PT'S HEART RATE IS 40-50 W ABSENT P WAVES, APPEARS REGULAR. OCCASSIONAL PACER SPIKES NOTED. EKG COMPLETED. SHOWS BIFASCICULAR BLOCK W R BBB. PT'S BP IS STABLE. PT IS SLIGHTLY CONFUSED BUT CALM, COOPERATIVE, DENIES COMPLAINTS. DR HEDRICK NOTIFIED. PT TO NPO AFTER MIDNIGHT FOR POSSIBLE PLACEMENT OF PACEMAKER IN AM. PT HAS NOT HAD ADDITIONAL HEMOPTYSIS SINCE THIS AM.
--- NOTE | 2020-11-29 13:22 | NUR ---
TRANSVENOUS PACER RATE INCREASED TO [address] HEDRICK. PT NOW 100% PACED AT 60. 02 PLACED AT 2L. BP STABLE.
--- NOTE | 2020-11-29 14:04 | NUR ---
Echocardiogram completed.
[2020-11-29 15:24] LABS: Hematocrit 31.5 % (37.0-53.0); Hemoglobin 10.1 g/dL (13.5-17.5)
--- NOTE | 2020-11-29 15:53 | NUR ---
DR KING IN TO SEE PT. SEE NEW ORDERS. H&H STABLE, HEPARIN SQ TO BE RESTARTED. POWERGLIDE PLACED TO JAMES W/O DIFFICULTY. PT REMAINS 100% PACED AT 60. PT HAS BEEN PLEASANTLY CONFUSED T/O SHIFT. PT ACTIVELY HALLUCINATING, CONVERSATION NON-SENSICAL AT TIMES. PT CALM AND COOPERATIVE. SLEPT MOST OF SHIFT. ANTIBIOTICS TO BE STARTED.
--- NOTE | 2020-11-29 21:00 | NUR ---
ASSUMED CARE. BEDSIDE REPORT RECEIVED. PT RESTING QUIETLY IN BED. PT IS ALERT AND ORIENTED, ABLE TO ANSWER QUESTIONS AND FOLLOW DIRECTIONS. PT HAS IJ TRANSVENOUS PACER PLACED, RATE SET AT 60 BPM, 100% PACED. HARRY CATHETER IN PLACE, DRAINING CLEAR YELLOW URINE. VITAL SIGNS STABLE, SEE SHIFT ASSESSMENT. NO OTHER ACUTE NEEDS NOTED AT THIS TIME.
[2020-11-30 05:11] LABS: BASOPHILS ABSOLUTE AUTO 0.05 K/mm3 (0.00-0.23); BASOPHILS PERCENT AUTO 1 % (0-2); EOSINOPHILS ABSOLUTE AUTO 0.11 K/mm3 (0.00-0.68); EOSINOPHILS PERCENT AUTO 1 % (0-6); Hematocrit 29.1 % (37.0-53.0); Hemoglobin 9.8 g/dL (13.5-17.5); IMMATURE GRAN ABSOLUTE AUTO 0.04 K/mm3 (0.00-0.10); IMMATURE GRAN PERCENT AUTO 0 % (0-1); LYMPHOCYTES ABSOLUTE AUTO 0.68 K/mm3 (0.84-5.20); LYMPHOCYTES PERCENT AUTO 6 % (21-46); MONOCYTES ABSOLUTE AUTO 1.33 K/mm3 (0.16-1.47); MONOCYTES PERCENT AUTO 13 % (4-13); Mean Corpuscular HGB 29.5 pg (26.0-34.0); Mean Corpuscular HGB Conc 33.7 g/dL (31.5-36.5); Mean Corpuscular Volume 88 fL (80-100); Mean Platelet Volume 10.8 fL (9.1-12.4); NEUTROPHILS ABSOLUTE AUTO 8.38 K/mm3 (1.96-9.15); NEUTROPHILS PERCENT AUTO 79 % (41-73); Platelet Count 137 K/mm3 (150-400); RDW Coefficient Variation 15.9 % (11.7-14.2); Red Blood Cell Count 3.32 M/mm3 (4.30-5.90); White Blood Cell Count 10.59 K/mm3 (4.00-11.30)
[2020-11-30 05:35] LABS: Albumin, Blood 2.8 g/dL (3.4-5.0); Anion Gap 4 mmol/L (6-16); Blood Urea Nitrogen 20 mg/dL (8-24); Bun/Creatinine Ratio 20.6 (12.0-20.0); CO2, Blood 29 mmol/L (21-32); Calcium, Blood 8.7 mg/dL (8.5-10.1); Chloride, Blood 105 mmol/L (98-108); Creatinine, Blood 0.97 mg/dL (0.60-1.20); Glomerular Filtration Rate >60 (60-); Glucose, Blood 96 mg/dL (70-99); Phosphorus, Blood 2.3 mg/dL (2.5-4.9); Potassium, Blood 3.5 mmol/L (3.5-5.5); Sodium, Blood 138 mmol/L (136-145)
--- NOTE | 2020-11-30 06:39 | NUR ---
SHIFT SUMMARY. PT RESTED QUIETLY THROUGHOUT SHIFT. PT ORIENTED AND ALERT, ABLE TO FOLLOW DIRECTIONS AND COMMUNICATE NEEDS. IJ TRANVENOUS PACER IN PLACE, 100% PACED, RATE 60 BPM. HARRY CATHETER IN PLACE, DRAINING DARK YELLOW URINE. PT GUARDING R/KNEE AND L/RIBCAGE FROM FALL AT HOME PRIOR TO ADMITTANCE, VERY SENSITIVE TO REPOSITIONING. PT HAS BEEN NPO SINCE MIDNIGHT FOR PACER PLACEMENT IN AM. VITALS REMAINED STABLE THROUGHOUT SHIFT, WILL CONTINUE TO MONITOR AND REPORT OFF TO ONCOMING RN.
--- NOTE | 2020-11-30 09:16 | NUR ---
PT ORIENTED, COOPERATIVE, ABLE TO ANSWER QUESTIONS APPROPRIATELY. AGREEABLE WITH PLANS FOR PACEMAKER PLACEMENT. DR. CABRALES HERE-DISCUSSED PLAN WITH PT-CONSENT DONE. PT C/O DISCOMFORT/PAIN THAT INCREASES WITH MOVEMENT IN RIGHT KNEE. REPOSITIONED. TOOK SIPS WATER WITH MEDS. HEPARIN D/C FOR PROCEDURE
--- NOTE | 2020-11-30 13:11 | NUR ---
LATE AM NOTE. PT INITALLY WAS SOMEWHAT CONFUSED UPON AWAKENING, THEN CLEARED AND ANSWERING QUESTIONS APPROP. VSS. PT IS NPO. AM HEPARIN HELD DUE TO PACER PLACEMENT TODAY. PT NOTED SOME DISCOMFORT/PAIN ON L LOWER ANT. CHEST WALL FROM FALL, MEDICATAED WITH RELIEF. PACER IS SET AT RATE 60, MA-10, SENCING-2 WITH NOTED 100% PACING AND CAPTURE. PACER IS SECURED TO NECK WITH ORIGINAL LOCATION DIFFICULT CONFIRM BUT DSG IN FULLY INTACT.
--- NOTE | 2020-11-30 14:38 | NUR ---
PT TO DROP CLIPPER FOR PERM. PACER AT APPROX. 1355 WITH BILL SHELBY AND VIA ADRIEN.
--- NOTE | 2020-11-30 16:43 | NUR ---
1550 REPORTED OFF TO VOCATIONAL COORDINATOR PT WILL COME FROM [facility] TO PCU-4. NO ANTICOAGULANTS REPORTED TO VOCATIONAL COORDINATOR PER DR MATTHEWS DISPITE HX OF AFIB AND REOCCURING GIB ISSUES.
--- NOTE | 2020-11-30 17:25 | NUR ---
ADMIT: 11/28/20 DISCHARGE: DX: Bradycardia CC: [email or web address] ADMIT: 11/08/20 DISCHARGE: 11/10/20 RAJENDRA CALL: RESIDENCE: home with spouse CAREGIVER: Deb Purvis, Spouse / Partner, Harry Purvis, Family Member, DX: Aortic stenosis, HTN, COPD, CAD, see list DME: CPAP, DM SUPPLIES CCM: REFERRAL- 2019 HOME HEALTH: none SUMMARY: Admit: 11/28/20 11/30/20- per chart review with Dr. Perry, pt to get pacemaker placement today. Pt has caregivers in the home to help at d/c. Plan is to d/c pt tomorrow. -shakira
--- NOTE | 2020-11-30 18:47 | NUR ---
PATIENT ARRIVED TO UNIT VIA BED FROM [facility] [place], PRESSURE DRESSING IN PLACE OVER SURGICAL PACER PLACEMENT SITE. NO DISCHARGE NOTED FROM SITE. SLING IN PLACE. PATIENT IS CONFUSED, ORIENTED TO NOTHING SINCE ARRIVAL TO UNIT, PATIENT TALKS TO EMPTY ROOM, IS PULLING AT CORDS AT TIMES. DRESSING INTACT OVER R. IJ. NO SIGNS OF ACUTE DISTRESS, VSS.
--- NOTE | 2020-11-30 21:06 | NUR ---
PT HAD SOME CONFUSION WHEN VITALS WERE TAKEN. VITALS WERE STABLE. PT THEN AWOKE MORE AND WAS ABLE TO TELL ME WHO THE PRESIDENT WAS, TOWN, PLACE HE WAS IN AND FULL NAME AND . HE WAS ABLE TO TAKE MEDICATIONS WITH APPLE SAUCE AND ORAL CARE WAS DONE AFTERWARDS. CPAP WAS PLACE ON PT AND HE WENT BACK TO SLEEP. PT DENIES PAIN OR SOB. WILL CONTINUE TO MONITOR.
--- NOTE | 2020-11-30 21:09 | NUR ---
PT'S CAREGIVER SATHISH CALLED TO ASK FOR STATUS OF PT. SHE MENTIONED THAT HE GETS CONFUSED WHEN HE IS NOT FEELING WELL. SHE ALSO STATED THAT PT LIVES ALONE BUT HAS TWO CAREGIVERS THAT ARE WITH HIM AT ALL TIMES.
[2020-12-01 04:37] LABS: BASOPHILS ABSOLUTE AUTO 0.06 K/mm3 (0.00-0.23); BASOPHILS PERCENT AUTO 1 % (0-2); EOSINOPHILS ABSOLUTE AUTO 0.06 K/mm3 (0.00-0.68); EOSINOPHILS PERCENT AUTO 1 % (0-6); Hematocrit 30.7 % (37.0-53.0); IMMATURE GRAN ABSOLUTE AUTO 0.05 K/mm3 (0.00-0.10); IMMATURE GRAN PERCENT AUTO 1 % (0-1); LYMPHOCYTES ABSOLUTE AUTO 0.56 K/mm3 (0.84-5.20); LYMPHOCYTES PERCENT AUTO 5 % (21-46); MONOCYTES ABSOLUTE AUTO 1.32 K/mm3 (0.16-1.47); MONOCYTES PERCENT AUTO 12 % (4-13); Mean Corpuscular HGB 28.7 pg (26.0-34.0); Mean Corpuscular HGB Conc 32.6 g/dL (31.5-36.5); Mean Corpuscular Volume 88 fL (80-100); Mean Platelet Volume 11.5 fL (9.1-12.4); NEUTROPHILS ABSOLUTE AUTO 9.05 K/mm3 (1.96-9.15); NEUTROPHILS PERCENT AUTO 82 % (41-73); Platelet Count 152 K/mm3 (150-400); RDW Coefficient Variation 15.8 % (11.7-14.2); RDW Standard Deviation 51.3 fL (35.1-46.3); Red Blood Cell Count 3.48 M/mm3 (4.30-5.90)
[2020-12-01 04:57] LABS: Alanine Aminotransfer (ALT/SGP 13 U/L (12-78); Albumin, Blood 2.8 g/dL (3.4-5.0); Albumin/Globulin Ratio 0.6 (0.8-1.8); Alk Phos 55 U/L (50-136); Anion Gap 6 mmol/L (6-16); Aspartate Aminotrans (AST/SGOT 17 U/L (12-37); Bilirubin, Total 1.1 mg/dL (0.1-1.0); Blood Urea Nitrogen 26 mg/dL (8-24); Bun/Creatinine Ratio 21.1 (12.0-20.0); CO2, Blood 27 mmol/L (21-32); Calcium, Blood 9.3 mg/dL (8.5-10.1); Chloride, Blood 105 mmol/L (98-108); Creatinine, Blood 1.23 mg/dL (0.60-1.20); Globulin, Blood 4.6 g/dL (2.2-4.0); Glomerular Filtration Rate >60 (60-); Glucose, Blood 99 mg/dL (70-99); Phosphorus, Blood 2.5 mg/dL (2.5-4.9); Potassium, Blood 3.1 mmol/L (3.5-5.5); Sodium, Blood 138 mmol/L (136-145); Total Protein, Blood 7.4 g/dL (6.4-8.2)
--- NOTE | 2020-12-01 06:40 | NUR ---
SHIFT SUMARY PT HAS HAD CONFUSION THROUGHOUT THE NIGHT WITH MINIMAL SLEEP AND YELLING OUT. . PT'S VITALS HAVE BEEN STABLE AND SATS ABOVE 92% ON NC AND BIPAP. PT IS ABLE TO SWALLOW MEDS WITH APPLESAUCE. HARRY IS IN PLACE AND DRAINING TO GRAVITY. PT IS VERY HESITANT WITH TURNS AND DOES NOT TOLERATE WELL HE WILL NEED A MAX ASSIST. PT'S VIEW IS A BIT OFF HE IS REACHING OFF ON OBJECTS. PT IS NOT USING CALL LIGHT APRROPRIETLY BUT IT IS WITHIN REACH. H
[2020-12-01 13:10] LABS: Stool Occult Bld Immuno 1 Negative (NEGATIVE)
--- NOTE | 2020-12-01 15:10 | NUR ---
12/01/20- PER CHART REVIE WITH DR. MOELLER, PT HAD PACEMAKER PLACED YESTERDAY. HE IS MOBILE TODAY BUT HAS CONFUSION. PT AND OT HAS BEEN ORDERED TO WORK WITH HIM ON ARM MOVEMENT WITH PACEMAKER. PT MAY NEED A WALKER WITH ARM REST. PLAN IS TO D/C PT TOMORROW. -GAYLE
--- NOTE | 2020-12-01 19:30 | NUR ---
SHIFT SUMMARY NO ACUTE EVENTS THIS SHIFT, VSS. PATIENT IS ABLE TO STATE THAT HE IS IN THE HOSPITAL, HOWEVER WILL START TALKING ON TANGENTS THAT ARE UNRELATED TO CURRENT CONVERSATION/SURROUNDINGS AND ARE NOT LOGICAL. PATIENT REPOSITIONED T/O SHIFT. HARRY IN PLACE, PATIENT IS INCONTINENT AND BRIEF WAS CHANGED T/O SHIFT. STOOL WAS BROWN AND LOOSE. PACEMAKER INTERROGATION COMPLETED THIS MORNING. DR. AMATO SAW PATIENT AT BEDSIDE, PLAN IS FOR CARDIOLOGY FOLLOW UP. PATIENT WORKED WITH PT/OT TODAY, UNABLE TO MOVE SELF IN BED. PATIENT WAS MAX ASSIST, ON LIFT SHEET.
[2020-12-02 04:59] LABS: Albumin, Blood 2.5 g/dL (3.4-5.0); Anion Gap 7 mmol/L (6-16); Blood Urea Nitrogen 39 mg/dL (8-24); Bun/Creatinine Ratio 33.1 (12.0-20.0); CO2, Blood 25 mmol/L (21-32); Calcium, Blood 8.8 mg/dL (8.5-10.1); Chloride, Blood 104 mmol/L (98-108); Creatinine, Blood 1.18 mg/dL (0.60-1.20); Glomerular Filtration Rate >60 (60-); Glucose, Blood 110 mg/dL (70-99); Potassium, Blood 3.1 mmol/L (3.5-5.5); Sodium, Blood 136 mmol/L (136-145)
--- NOTE | 2020-12-02 05:21 | NUR ---
SHIFT SUMMARY PATIENT FOUND TO BE A&OX2-3, LIU, AND FOLLOWING SOME COMMANDS. IS FORGETFUL AND OFTEN RAMBLES ABOUT UNRELATED TOPICS. BLE NEUROPATHY NOTED. GENERALIZED WEAKNESS AND MORE SO TO BLE WITH 2/5 STRENGTH. PACED IN THE 60'S ON THE MONITOR. LEFT CHEST SITE C/D/I WITH PRESSURE DRESSING IN PLACE. ON RA AND CPAP AT [facility]. NO PAIN. EATING WELL. INCONTINENT OF STOOL BUT NONE THIS SHIFT. HARRY IN PLACE DRAINING TO GRAVITY. Q2H TURNS IN PLACE. NO ACUTE CONCERNS AT THIS TIME. WILL CONTINUE TO MONITOR.
--- NOTE | 2020-12-02 12:57 | NUR ---
12/02/20- per chart review with Dr. Perry, pt could potentially be d/c tomorrow. PT and OT are recommending SNF placement. Pt has expressed concern about going to a facility vs returning home. Dr. Perry discussed this with the pt and let him know that he will not be d/c today, he needs potassium. Will look at d/c pt tomorrow to [facility]. Started packet to send for review when pt is stable to d/c. -shakira
--- NOTE | 2020-12-02 15:25 | NUR ---
RECIEVED REPORT FROM LIZZY FIELDS. PATIENT TO TRANFER TO ROOM 337.
--- NOTE | 2020-12-02 16:03 | NUR ---
REPORT GIVEN TO MEDICAL FLOOR NURSE SHAHZAD, PT TRANSFERRED UP. PT STARTED ON 4 L OXYGEN, WEANED DOWN TO RA SUCCESSFULLY OVER THE COURSE OF THE MORNING BUT UNABLE TO MAINTAIN SATS WITH ROLLING AND TALKING, PLACED BACK ON OXYGEN, MEDICAL FLOOR NURSE AWARE. PIERO SALCEDO'D AT 1145, NO URINE PASSED YET, SHAHZAD AWARE. Q2 TURNS DONE FOR COCCYX WOUND. INCONT STOOL, DR MOELLER AWARE, SHE ORDERED STOOL SAMPLE NEXT TIME PT HAS BM. CALL LIGHT IN REACH, PT TRANSFERRED
--- NOTE | 2020-12-02 16:07 | NUR ---
PATIENT ARRIVED TO ROOM 337 AT 1555. HE WAS SITUATED AND THE CALL LIGHT GIVEN TO THE PATIENT. PATIENT IS COMFORTABLE AT THIS TIME.
--- NOTE | 2020-12-03 03:30 | NUR ---
SUMMARY PT DENIES CX PAIN OR SOB. PT PACEMAKER SITE IS C/D/I. PT HAD SOME INCREASED BACK DISCOMFORT AND TX PER EMAR W/ RELIEF. PT CURRENTLY SLEEPING IN NO DISTRESS.
[2020-12-03 05:21] LABS: Hematocrit 26.8 % (37.0-53.0); Hemoglobin 8.9 g/dL (13.5-17.5)
[2020-12-03 05:42] LABS: Anion Gap 6 mmol/L (6-16); Blood Urea Nitrogen 36 mg/dL (8-24); CO2, Blood 27 mmol/L (21-32); Calcium, Blood 8.6 mg/dL (8.5-10.1); Chloride, Blood 103 mmol/L (98-108); Creatinine, Blood 0.97 mg/dL (0.60-1.20); Glomerular Filtration Rate >60 (60-); Glucose, Blood 99 mg/dL (70-99); Potassium, Blood 3.1 mmol/L (3.5-5.5); Sodium, Blood 136 mmol/L (136-145)
[2020-12-03 10:33] LABS: C DIFFICILE DNA NEGATIVE (Negative)
[2020-12-03 12:09] LABS: Hematocrit 27.3 % (37.0-53.0)
[2020-12-03 15:39] LABS: SARS-Cov-2 (COVID-19) PCR, MMC NEGATIVE (NEGATIVE)
--- NOTE | 2020-12-03 16:42 | NUR ---
PATIENT TRANSFERRED TO [facility] VIA W/C TRANSPORT. PACKET SENT WITH OPERATIONS SUPPORT MANAGER. REPORT CALLED TO VICENTA NURSE AT [facility].
== END 2020-12-03 16:54 | DRG 242 ==
LOC: ER 16:15 → ICUW 21:19 → PCU 11-30 15:33 → MEDS 12-02 15:46
PROVIDERS: Family Medicine; Internal Medicine; Internal Medicine Critical Care Medicine; Physician Assistant; ADMIT Internal Medicine
PROC: 0JH604Z Insertion of Pacemaker, Single Chamber into Chest Subcutaneous Tissue and Fascia, Open Approach (ICD-10-PCS; principal; 2020-11-30)
PROC: 02HK3JZ Insertion of Pacemaker Lead into Right Ventricle, Percutaneous Approach (ICD-10-PCS; 2020-11-30)
DX: I44.2 Atrioventricular block, complete (principal); J18.9 Pneumonia, unspecified organism; Z68.41 Body mass index [BMI] 40.0-44.9, adult; R04.2 Hemoptysis; G93.1 Anoxic brain damage, not elsewhere classified; I10 Essential (primary) hypertension; I25.10 Atherosclerotic heart disease of native coronary artery without angina pectoris; G47.33 Obstructive sleep apnea (adult) (pediatric); Z96.642 Presence of left artificial hip joint; M10.9 Gout, unspecified; Z20.822 Contact with and (suspected) exposure to COVID-19; I35.0 Nonrheumatic aortic (valve) stenosis; Z60.2 Problems related to living alone; E78.00 Pure hypercholesterolemia, unspecified; M45.9 Ankylosing spondylitis of unspecified sites in spine; E66.01 Morbid (severe) obesity due to excess calories; K21.9 Gastro-esophageal reflux disease without esophagitis; E87.6 Hypokalemia; I48.21 Permanent atrial fibrillation; I27.20 Pulmonary hypertension, unspecified; I34.0 Nonrheumatic mitral (valve) insufficiency; D63.8 Anemia in other chronic diseases classified elsewhere; I87.8 Other specified disorders of veins; E78.5 Hyperlipidemia, unspecified; E11.42 Type 2 diabetes mellitus with diabetic polyneuropathy; S80.10XA Contusion of unspecified lower leg, initial encounter; W18.30XA Fall on same level, unspecified, initial encounter; Z88.8 Allergy status to other drugs, medicaments and biological substances; Z95.1 Presence of aortocoronary bypass graft; Z89.429 Acquired absence of other toe(s), unspecified side; Z98.890 Other specified postprocedural states; Z86.73 Personal history of transient ischemic attack (TIA), and cerebral infarction without residual deficits; Z79.82 Long term (current) use of aspirin; Z79.899 Other long term (current) drug therapy; Z87.11 Personal history of peptic ulcer disease
CPT/HCPCS: 33207; 33210; 36415; 51702; 70450; 71045; 71046; 71260; 73562-RT; 76937; 80048; 80053; 80061; 80069; 82274; 82947; 83880; 84100; 84484; 85014; 85018; 85025; 85379; 85610; 87493; 93005; 93010; 93306; 94660; 94762; 97110; 97162; 97166; 97530; 97535; 99152; 99153; 99285-25; A9270; C1751; C1769; C1781; C1786; C1894; C1898; J0461; J0690; J1644; J2250; J3010; J3480; J7030; J7040; Q9967; U0004

== ENCOUNTER 2021-05-20 08:43 | Day surgery (SDC) | payer MEDICARE, OTHER ==
[~2021-05-20] VITALS: Ht 177.8 cm; Wt 125.1 kg
[2021-05-20] MEDS ORDERED: LOSA25 PO (09:08)
[2021-05-20] MEDS ORDERED: FERSU300 (09:08)
[2021-05-20] MEDS ORDERED: FAMO40 PO (09:08)
[2021-05-20] MEDS ORDERED: ATOR10 PO (09:09)
[2021-05-20] MEDS ORDERED: ACET325 PO (09:09)
--- NOTE | 2021-05-20 09:15 | NUR ---
05/20/21 0915 Chela Bush CALL LIGHT WITHIN REACH. EYE DROPS AT 0910 PLEDGETT AT 0912
== END 2021-05-20 10:56 | disposition home or self-care (01) ==
LOC: ORSCSDS 08:43
PROVIDERS: Ophthalmology
PROC: 08RJ3JZ Replacement of Right Lens with Synthetic Substitute, Percutaneous Approach (ICD-10-PCS; principal; 2021-05-20 09:45)
DX: H25.11 Age-related nuclear cataract, right eye (principal); I25.10 Atherosclerotic heart disease of native coronary artery without angina pectoris; Z95.0 Presence of cardiac pacemaker; Z79.01 Long term (current) use of anticoagulants; E11.9 Type 2 diabetes mellitus without complications; E66.01 Morbid (severe) obesity due to excess calories; Z68.39 Body mass index [BMI] 39.0-39.9, adult; Z79.899 Other long term (current) drug therapy
CPT/HCPCS: 82947; J2001; J2250; J3010; J3301; J7040; V2632

== ENCOUNTER 2021-06-10 11:21 | Day surgery (SDC) | payer MEDICARE, OTHER ==
[~2021-06-10] VITALS: Ht 160 cm; Wt 125.7 kg
[~2021-06-10 11:21] MED LIST changes: +ACET325 PO; +ATOR10 PO; +FAMO40 PO; +FERSU300; +LOSA25 PO
[2021-06-10] MEDS ORDERED: VITAMIN D31000 UNI1 PO (11:38)
--- NOTE | 2021-06-10 11:45 | NUR ---
06/10/21 1145 LALA SU TETRACAINE DROP INSTILLED AT 1135. PLEDGETT INSERTED AT 1137
== END 2021-06-10 13:16 | disposition home or self-care (01) ==
LOC: ORSCSDS 11:21
PROVIDERS: Ophthalmology
PROC: 08RK3JZ Replacement of Left Lens with Synthetic Substitute, Percutaneous Approach (ICD-10-PCS; principal; 2021-06-10 12:30)
DX: H25.12 Age-related nuclear cataract, left eye (principal); I25.10 Atherosclerotic heart disease of native coronary artery without angina pectoris; I48.91 Unspecified atrial fibrillation; G47.33 Obstructive sleep apnea (adult) (pediatric); E11.9 Type 2 diabetes mellitus without complications; Z95.0 Presence of cardiac pacemaker; E66.01 Morbid (severe) obesity due to excess calories; Z68.42 Body mass index [BMI] 45.0-49.9, adult; Z79.899 Other long term (current) drug therapy; Z79.82 Long term (current) use of aspirin
CPT/HCPCS: 82947; J2001; J2250; J3010; J3301; J7040; V2632

== ENCOUNTER 2021-08-27 11:16 | Inpatient (IN) | payer MEDICARE, OTHER ==
[~2021-08-27] VITALS: Ht 177.8 cm; Wt 132.9 kg
[~2021-08-27 11:16] MED LIST changes: +VITAMIN D31000 UNI1 PO
[2021-08-27 11:46] LABS: BASOPHILS ABSOLUTE AUTO 0.05 K/mm3 (0.00-0.23); BASOPHILS PERCENT AUTO 0 % (0-2); EOSINOPHILS PERCENT AUTO 0 % (0-6); Hematocrit 34.3 % (37.0-53.0); Hemoglobin 11.2 g/dL (13.5-17.5); IMMATURE GRAN ABSOLUTE AUTO 0.13 K/mm3 (0.00-0.10); IMMATURE GRAN PERCENT AUTO 1 % (0-1); LYMPHOCYTES ABSOLUTE AUTO 0.54 K/mm3 (0.84-5.20); LYMPHOCYTES PERCENT AUTO 3 % (21-46); MONOCYTES ABSOLUTE AUTO 1.17 K/mm3 (0.16-1.47); MONOCYTES PERCENT AUTO 6 % (4-13); Mean Corpuscular HGB 29.2 pg (26.0-34.0); Mean Corpuscular HGB Conc 32.7 g/dL (31.5-36.5); Mean Corpuscular Volume 89 fL (80-100); Mean Platelet Volume 10.8 fL (9.1-12.4); NEUTROPHILS ABSOLUTE AUTO 17.37 K/mm3 (1.96-9.15); NEUTROPHILS PERCENT AUTO 90 % (41-73); Platelet Count 115 K/mm3 (150-400); RDW Coefficient Variation 19.4 % (11.7-14.2); RDW Standard Deviation 63.3 fL (35.1-46.3); Red Blood Cell Count 3.84 M/mm3 (4.30-5.90); White Blood Cell Count 19.26 K/mm3 (4.00-11.30)
[2021-08-27 12:04] LABS: Alanine Aminotransfer (ALT/SGP 22 U/L (12-78); Albumin, Blood 3.2 g/dL (3.4-5.0); Albumin/Globulin Ratio 0.8 (0.8-1.8); Alk Phos 83 U/L (50-136); Anion Gap 6 mmol/L (6-16); Aspartate Aminotrans (AST/SGOT 21 U/L (12-37); Bilirubin, Total 1.1 mg/dL (0.1-1.0); Blood Urea Nitrogen 18 mg/dL (8-24); Bun/Creatinine Ratio 16.2 (12.0-20.0); CO2, Blood 30 mmol/L (21-32); Calcium, Blood 8.9 mg/dL (8.5-10.1); Chloride, Blood 98 mmol/L (98-108); Creatinine, Blood 1.11 mg/dL (0.60-1.20); Globulin, Blood 3.9 g/dL (2.2-4.0); Glomerular Filtration Rate >60 (60-); Glucose, Blood 120 mg/dL (70-99); Potassium, Blood 5.1 mmol/L (3.5-5.5); Sodium, Blood 134 mmol/L (136-145); Total Protein, Blood 7.1 g/dL (6.4-8.2)
[2021-08-27] MEDS ORDERED: TRULICITY0.75 MG/01 SC (13:31)
[2021-08-27] MEDS ORDERED: TORSE20 PO (13:34)
--- NOTE | 2021-08-27 18:10 | NUR ---
SHIFT SUMMARY: RIGHT TIBIA FX - NONSURGICAL PATIENT IS AT BASELINE SLIGHTLY CONFUSED. CURRENTLY HE IS A&OX3. VS ARE WNL AND IS ON 2L NC. PATIENT DENIES PAIN AT THIS TIME. RIGHT TIBIA IS IN AN IMMOBILIZER. HE CAN WIGGLE TOES BUT HAS TINGLING AT BASELINE DUE TO NEUROPATHY. HE HAS BILATERAL LOWER EXTREMITY EDEMA 2+. PATIENT HAS AN ABRASION ON HIS LEFT FOREARM WITH BANDAIDS ON IT AND THEN ANOTHER ONE ON THE LEFT LEG THAT IS WHEEPING BUT IS OPEN TO AIR. PATIENT IS TO BE ON BEDREST UNTIL EVALUATED BY PT AND IS NON WT BEARING. PATIENT IS CURRENTLY LAYING IN BED. CALL LIGHT WITHIN REACH. THE PLAN IS FOR HIM TO GO TO A SNF AFTER THE WEEKEND BUT UNTIL THEN HAVE HIS PAIN MANAGED AND WORK WITH PT.
[2021-08-28 04:17] LABS: BASOPHILS ABSOLUTE AUTO 0.04 K/mm3 (0.00-0.23); BASOPHILS PERCENT AUTO 0 % (0-2); EOSINOPHILS ABSOLUTE AUTO 0.02 K/mm3 (0.00-0.68); EOSINOPHILS PERCENT AUTO 0 % (0-6); Hematocrit 29.9 % (37.0-53.0); Hemoglobin 9.6 g/dL (13.5-17.5); IMMATURE GRAN ABSOLUTE AUTO 0.08 K/mm3 (0.00-0.10); IMMATURE GRAN PERCENT AUTO 1 % (0-1); LYMPHOCYTES ABSOLUTE AUTO 0.51 K/mm3 (0.84-5.20); LYMPHOCYTES PERCENT AUTO 3 % (21-46); MONOCYTES ABSOLUTE AUTO 1.12 K/mm3 (0.16-1.47); MONOCYTES PERCENT AUTO 8 % (4-13); Mean Corpuscular HGB 28.9 pg (26.0-34.0); Mean Corpuscular HGB Conc 32.1 g/dL (31.5-36.5); Mean Corpuscular Volume 90 fL (80-100); Mean Platelet Volume 10.4 fL (9.1-12.4); NEUTROPHILS ABSOLUTE AUTO 13.04 K/mm3 (1.96-9.15); NEUTROPHILS PERCENT AUTO 88 % (41-73); Platelet Count 104 K/mm3 (150-400); RDW Coefficient Variation 18.8 % (11.7-14.2); RDW Standard Deviation 61.9 fL (35.1-46.3); Red Blood Cell Count 3.32 M/mm3 (4.30-5.90); White Blood Cell Count 14.81 K/mm3 (4.00-11.30)
[2021-08-28 04:34] LABS: Anion Gap 4 mmol/L (6-16); Blood Urea Nitrogen 19 mg/dL (8-24); Bun/Creatinine Ratio 16.7 (12.0-20.0); CO2, Blood 33 mmol/L (21-32); Calcium, Blood 8.8 mg/dL (8.5-10.1); Chloride, Blood 101 mmol/L (98-108); Creatinine, Blood 1.14 mg/dL (0.60-1.20); Glomerular Filtration Rate >60 (60-); Glucose, Blood 99 mg/dL (70-99); Magnesium, Blood 2.2 mg/dL (1.6-2.4); Potassium, Blood 4.2 mmol/L (3.5-5.5); Sodium, Blood 138 mmol/L (136-145)
--- NOTE | 2021-08-28 06:32 | NUR ---
ALERT X'S 3. SLEPT WELL THROUGH NIGHT. DENIED PAIN OR DISCOMFORT. NO ACUTE DISTRESS NOTED, RESPIRATIONS EVEN AND UNALBORED, CONTINUOUS PULSE OX IN PLACE. TOLERATED CPAP WELL. IMMOBILIZER IN PLACE TO RLE. SAFETY MAINTAINED, CALL ALANIS IN REACH.
--- NOTE | 2021-08-28 11:18 | NUR ---
DR VILA IN TO SEE PATIENT THIS AM. REQUESTED NEW KNEE IMMOBILIZER THE ONE THE PT IS WEARING IS TOO SMALL. [facility] CONTACTED AND THEY STATED THAT THEY DO NOT CARRY IMMOBILIZERS. [facility] ALSO CALLED AND REQUEST PUT IN FOR MONDAY TO HAVE [facility] BROUGHT IN FOR PATIENT. PRIMARY NURSE NOTIFIED.
--- NOTE | 2021-08-28 17:13 | NUR ---
PATIENT CURRENTLY LYING IN BED WITH NO SIGNS OR SYMPTOMS ACUTE DISTRESS NOTED. RIGHT LEG IMMOBILIZER IS ON, A NEW ONE HAS BEEN ORDERED BY CHARGE NURSE DUE TO PATIENT NEEDING A BIGGER SIZE TO FIT APPROPRIATELY. PATIENT HAS NOT COMPLAINTS OF PAIN AT THIS TIME. NO COMPLAINTS OF NAUSEA. PATIENT HAS BEEN ON CPAP MOST OF SHIFT DUE TO BEING TIRED AND SLEEPING. WHEN HE SLEEPS HE BREATHS THROUGH HIS MOUTH, O2 PER NC NOT KEEPING SATS ABOVE 90 WHEN HE SLEEPS. PATIENT FEEDS HIMSELF AFTER TRAY SET UP. PATIENT ABLE TO MAKE NEEDS AND WANTS KNOWN. TURNED AND REPOSITIONED Q 2 AND PRN. PATIENT HAS BEEN CONTINENT OF BOWEL AND BLADDER TODAY WITH ASSIST FROM STAFF. WILL MONITOR.
--- NOTE | 2021-08-29 06:45 | NUR ---
Alert and oriented x's 4. Medicated with Tylenol 325mg for pain management, effective relief. Slept well through night with CPAP, no acute distress noted. respirations even and unlabored. Safety maintained call thomas in reach.
--- NOTE | 2021-08-29 07:10 | NUR ---
Alert and oriented x's 3. Medicated with Tylenol 325mg po, effective relief. slept well through night, tolerated CPAP well. Immobilizer in place to RLE. repositioned through night. Safety maintained, call thomas in reach.
[2021-08-29 10:25] LABS: BASOPHILS ABSOLUTE AUTO 0.03 K/mm3 (0.00-0.23); BASOPHILS PERCENT AUTO 0 % (0-2); EOSINOPHILS ABSOLUTE AUTO 0.07 K/mm3 (0.00-0.68); EOSINOPHILS PERCENT AUTO 1 % (0-6); Hematocrit 26.6 % (37.0-53.0); Hemoglobin 8.7 g/dL (13.5-17.5); IMMATURE GRAN ABSOLUTE AUTO 0.07 K/mm3 (0.00-0.10); IMMATURE GRAN PERCENT AUTO 1 % (0-1); LYMPHOCYTES ABSOLUTE AUTO 0.49 K/mm3 (0.84-5.20); LYMPHOCYTES PERCENT AUTO 3 % (21-46); MONOCYTES ABSOLUTE AUTO 1.07 K/mm3 (0.16-1.47); MONOCYTES PERCENT AUTO 8 % (4-13); Mean Corpuscular HGB 28.9 pg (26.0-34.0); Mean Corpuscular HGB Conc 32.7 g/dL (31.5-36.5); Mean Corpuscular Volume 88 fL (80-100); Mean Platelet Volume 10.9 fL (9.1-12.4); NEUTROPHILS ABSOLUTE AUTO 12.48 K/mm3 (1.96-9.15); NEUTROPHILS PERCENT AUTO 88 % (41-73); Platelet Count 80 K/mm3 (150-400); RDW Coefficient Variation 18.7 % (11.7-14.2); RDW Standard Deviation 60.9 fL (35.1-46.3); Red Blood Cell Count 3.01 M/mm3 (4.30-5.90); White Blood Cell Count 14.21 K/mm3 (4.00-11.30)
[2021-08-29 10:44] LABS: Calcium, Blood 8.3 mg/dL (8.5-10.1); Creatinine, Blood 1.29 mg/dL (0.60-1.20); Potassium, Blood 3.7 mmol/L (3.5-5.5)
[2021-08-30 04:31] LABS: BASOPHILS ABSOLUTE AUTO 0.03 K/mm3 (0.00-0.23); BASOPHILS PERCENT AUTO 0 % (0-2); EOSINOPHILS ABSOLUTE AUTO 0.24 K/mm3 (0.00-0.68); EOSINOPHILS PERCENT AUTO 2 % (0-6); Hematocrit 27.3 % (37.0-53.0); Hemoglobin 8.6 g/dL (13.5-17.5); IMMATURE GRAN ABSOLUTE AUTO 0.04 K/mm3 (0.00-0.10); IMMATURE GRAN PERCENT AUTO 0 % (0-1); LYMPHOCYTES ABSOLUTE AUTO 0.54 K/mm3 (0.84-5.20); LYMPHOCYTES PERCENT AUTO 5 % (21-46); MONOCYTES ABSOLUTE AUTO 1.03 K/mm3 (0.16-1.47); MONOCYTES PERCENT AUTO 9 % (4-13); Mean Corpuscular HGB Conc 31.5 g/dL (31.5-36.5); Mean Corpuscular Volume 92 fL (80-100); Mean Platelet Volume 10.6 fL (9.1-12.4); NEUTROPHILS PERCENT AUTO 83 % (41-73); Platelet Count 83 K/mm3 (150-400); RDW Coefficient Variation 18.7 % (11.7-14.2); Red Blood Cell Count 2.97 M/mm3 (4.30-5.90); White Blood Cell Count 11.18 K/mm3 (4.00-11.30)
[2021-08-30 04:53] LABS: Anion Gap 6 mmol/L (6-16); Blood Urea Nitrogen 31 mg/dL (8-24); Bun/Creatinine Ratio 31.3 (12.0-20.0); CO2, Blood 28 mmol/L (21-32); Calcium, Blood 8.9 mg/dL (8.5-10.1); Chloride, Blood 101 mmol/L (98-108); Creatinine, Blood 0.99 mg/dL (0.60-1.20); Glomerular Filtration Rate >60 (60-); Glucose, Blood 96 mg/dL (70-99); Potassium, Blood 3.5 mmol/L (3.5-5.5); Sodium, Blood 135 mmol/L (136-145)
--- NOTE | 2021-08-30 05:28 | NUR ---
PATIENT ON THE PHONE TALKING TO HIS FAMILY THROUGH NIGHT, MORE ALERT THIS EVENING. DENIED PAIN OR DISCOMFORT, NO ACUTE DISTRESS NOTED. RESPIRATIONS EVEN AND UNLABORED. TOLERATED CPAP WELL. IMMOBILIZER IN PLACE. TURNED AND REPOSITIONED THROUGH NIGHT WITH PILLOWS. BLE'S ELEVATED ON PILLOWS. SAFETY MAINTAINED, CALL ALANIS IN REACH.
--- NOTE | 2021-08-30 07:36 | NUR ---
PATIENT CURRENTLY LYING IN BED WITH NO SIGNS OR SYMPTOMS ACUTE DISTRESS NOTED. CALL LIGHT IN REACH, ABLE TO MAKE NEEDS AND WANTS KNOWN. IMMOBILIZER ON TO RIGHT LEG, AWAITING NEW BIGGER IMMOBILIZER TO ARRIVE, ORDERED ON MONDAY, WILL CALL TODAY WHEN THEY OPEN TO FIND OUT ETA OF [facility]. PEDAL PULSES PRESENT. 2-3+ PITTING EDEMA TO BLE. PATIENT IS EDEMATUS ALL OVER. ARMS ELEVATED ON PILLOWS. O2 AT 2L PER NC. TOLERATING WELL. WILL MONITOR.
--- NOTE | 2021-08-30 15:01 | NUR ---
This afternoon I visited the patient in his [facility] inpatient room 212, patient was sitting up, alert and pleasant. Patient's caregivers were there in his room visiting him as well. We discussed the discharge plan. Patient is adamant on declining transferring to a SNF. He is to discharge home tomorrow with [facility]. I have contacted the [facility] office to refer the patient and discuss his DC needs. I have also ordered a hospital bed, bariatric bedside commode, and trapeze bar to be delivered by [facility] to the patient's home today. I have also ordered a bariatric wheelchair to be delivered by [facility] to the patient's [facility] Inpatient room. I have discussed this with the patient's caregiver, Antonia Galindo, as well as the patient's nurse. I also discussed with the patient and his caregivers that the RAJENDRA team from [facility] would be calling after the patient discharges to schedule him a hospital follow-up visit with his PCP within 2-5 days and the importance of attending this appointment.
--- NOTE | 2021-08-30 16:57 | NUR ---
PATIENT CURRENTLY LYING IN BED WITH NO SIGNS OR SYMPTOMS ACUTE DISTRESS NOTED. PATIENT MORE AWAKE TODAY, HAS HAD MULTIPLE VISITORS TODAY. PATIENT WAS EVALED BY PT AND OT, SAT EDGE OF BED WITH BOTH. PATIENT IS TO DISCHARGE HOME TOMORROW WITH HOME HEALTH AND HIS CAREGIVERS. WHEELCHAIR WAS DELIVERED. A NEW KNEE IMMOBILIZER WAS DELIVERED AND PLACED ON PATIENT. PATIENT ABLE TO MAKE NEEDS AND WANTS KNOWN. O2 AT 2L PER NC, TOLERATING WELL. PATIENT REMAINS NWB TO RIGHT LEG. WILL MONITOR.
--- NOTE | 2021-08-31 05:25 | NUR ---
SHIFT SUMMARY: PT IN BED AA0 BUT CONFUSED AT TIMES. VS WNL. O2 VIA NC AT 2L. PULSE OX IN PROGRESS MONITORING SAT 95-98%.VOIDING WELL IN URINAL. IMMOBILIZER ON RIGHT LEG. REPOSITIONED FOR PAIN. WEEPING SKIN ON LEGS. CALL DR TREVINO ORDERED FOR PAIN MEDICATION GIVEN ORDERED. CPAP IN PLACE WITH 02 AT 2L EYES CLOSED RESTING WELL. MONITIORING AND MAINTAINING ALL PRECAUTIONS.
[2021-08-31] MEDS ORDERED: TRAM50 PO (12:57)
--- NOTE | 2021-08-31 15:03 | NUR ---
Pt. is drowsy in bed, but is alerted by my entrance. Pt. welcomes my visit. Pt. is unsettled by the discomfort of his leg immobilyzer. Listen empathetically. Pt. doesn't always speak clearly. [place] with pt. Pt. displays evidence of agreement with the prayer, and verbalizes his gratitude for his spiritual care visit.
[2021-08-31 15:50] LABS: Source, Urine Foley catheter
[2021-08-31 15:55] LABS: Alanine Aminotransfer (ALT/SGP 32 U/L (12-78); Albumin, Blood 2.5 g/dL (3.4-5.0); Albumin/Globulin Ratio 0.6 (0.8-1.8); Alk Phos 92 U/L (50-136); Anion Gap 6 mmol/L (6-16); Aspartate Aminotrans (AST/SGOT 45 U/L (12-37); Blood Urea Nitrogen 38 mg/dL (8-24); Bun/Creatinine Ratio 40.6 (12.0-20.0); CO2, Blood 29 mmol/L (21-32); Calcium, Blood 8.6 mg/dL (8.5-10.1); Chloride, Blood 97 mmol/L (98-108); Creatinine, Blood 0.94 mg/dL (0.60-1.20); Glomerular Filtration Rate >60 (60-); Glucose, Blood 120 mg/dL (70-99); Potassium, Blood 3.7 mmol/L (3.5-5.5); Sodium, Blood 132 mmol/L (136-145); Total Protein, Blood 6.5 g/dL (6.4-8.2)
[2021-08-31 16:02] LABS: BASOPHILS ABSOLUTE AUTO 0.03 K/mm3 (0.00-0.23); BASOPHILS PERCENT AUTO 0 % (0-2); EOSINOPHILS ABSOLUTE AUTO 0.22 K/mm3 (0.00-0.68); EOSINOPHILS PERCENT AUTO 2 % (0-6); Hematocrit 26.8 % (37.0-53.0); Hemoglobin 8.8 g/dL (13.5-17.5); IMMATURE GRAN ABSOLUTE AUTO 0.04 K/mm3 (0.00-0.10); IMMATURE GRAN PERCENT AUTO 0 % (0-1); LYMPHOCYTES ABSOLUTE AUTO 0.57 K/mm3 (0.84-5.20); LYMPHOCYTES PERCENT AUTO 5 % (21-46); MONOCYTES ABSOLUTE AUTO 0.99 K/mm3 (0.16-1.47); MONOCYTES PERCENT AUTO 9 % (4-13); Mean Corpuscular HGB Conc 32.8 g/dL (31.5-36.5); Mean Corpuscular Volume 88 fL (80-100); Mean Platelet Volume 10.6 fL (9.1-12.4); NEUTROPHILS ABSOLUTE AUTO 9.56 K/mm3 (1.96-9.15); NEUTROPHILS PERCENT AUTO 84 % (41-73); Platelet Count 97 K/mm3 (150-400); RDW Coefficient Variation 18.1 % (11.7-14.2); RDW Standard Deviation 59.5 fL (35.1-46.3); Red Blood Cell Count 3.03 M/mm3 (4.30-5.90); White Blood Cell Count 11.41 K/mm3 (4.00-11.30)
[2021-08-31 16:04] LABS: Bilirubin, Urine Neg (Neg); Blood, Urine Neg (Neg); Glucose Qualitative, Urine Neg (Neg); Ketones, Urine Neg (Neg); Leukocyte Esterase, Urine Neg (Neg); Nitrite, Urine Neg (Neg); Protein, Urine 1+ (Neg); Specific Gravity, Urine 1.015 (1.003-1.022); Urobilinogen, Urine NORM (Normal)
[2021-08-31 16:45] LABS: Appearance, Urine Clear (Clear); Color, Urine Pale Yellow (P-Yellow)
--- NOTE | 2021-08-31 19:15 | NUR ---
PATIENT CURRENTLY LYING IN BED WITH NO SIGNS OR SYMPTOMS ACUTE DISTRESS NOTED. PATIENT WAS SUPPOSED TO DC TODAY BUT HAD A CHANGE IN STATUS. PATIENT VERY SWOLLEN. SCROTUM IS SWOLLEN AND PATIENT WAS UNABLE TO URINATE. BLADDER SCAN REVEALED 675ML IN BLADDERS. PATIENT HAS 3+ PITTING EDEMA TO RLE AND 2+ TO LLE. BLE ARE WEEPING. LUNG SOUNDS CORSE WITH EXP WHEEZES NOTED AT TIMES. O2 REMIANS AT 2L PER NC. PATIENT ALSO SEEMED TO HAVE SLURRED SPEECH AND SLIGHTLY WEAKER ON THE LEFT SIDE THAN THE RIGHT. NOTIFIED DR MO. HE CANCELED THE DISCHARGE, ORDERED LABS, HEAT CT, CXR, TELE AND TO PLACE AHRRY. AWAITNG HEAD CT AND CXR TO BE DONE. CALLED THEY STATE THEY HAVE HAD EMERGENCIES AND WILL GET TO HIS SOON. PATIENT IS ALERT AND OREINTED WHEN AWAKE BUT HAS SLURRED SPEECH. THIS IS NEW FOR HIM. CAREGIVER IS AWARE PATIENT NOT DISCHARGING TODAY. WILL MONITOR.
--- NOTE | 2021-08-31 22:13 | NUR ---
TRANSFERRING PT. TO RM. [id number], REPORT GIVEN TO BENNETT FIELDS, QUESTIONS ANSWERED. PT. ALERT/ AWAKE.
--- NOTE | 2021-09-01 05:31 | NUR ---
PM SHIFT SUMMARY PATIENT CURRENTLY RESTING WITH NO SIGNS OR SYMPTOMS OF DISTRESS. HE WAS SUPPOSED TO DC HOME TDAY BUT STARTED HAVING MORE BLE EDEMA AND LETHARGIC BLE ARE ALSO WHEEPING, WITH MILY PADS UNDERNEATH, LEGS FLOATED ON PILLOWS FOR COMFORT. HE HAS A HARRY IN PLACE AND DRAINING. URINE WAS ORIGINALLY RED, BUT IS NOW BECOMING MORE OF A DARK SCAR COLOR, WITH A FEW SMALL CLOTS PRESENT.HE HAS A FRACTURE IN THE RIGHT FEMORAL THAT DOES NOT REQUIRE SURGICAL INTERVENTION. HE HAS AN IMMOBILIZER THAT HE WILL WEAR ALL THE TIME. HISTORY IS EXTENSIVE, ESPECIALLY FOR CARDIOVASCULAR CONCERNS. SLEPT WITH PAP MACHINE AND 2L O2 NC. AWAITING CLEARANCE TO DC TO A SNF.
[2021-09-01 05:58] LABS: BASOPHILS ABSOLUTE AUTO 0.04 K/mm3 (0.00-0.23); BASOPHILS PERCENT AUTO 0 % (0-2); EOSINOPHILS ABSOLUTE AUTO 0.18 K/mm3 (0.00-0.68); EOSINOPHILS PERCENT AUTO 2 % (0-6); Hematocrit 25.7 % (37.0-53.0); Hemoglobin 8.4 g/dL (13.5-17.5); IMMATURE GRAN ABSOLUTE AUTO 0.05 K/mm3 (0.00-0.10); IMMATURE GRAN PERCENT AUTO 1 % (0-1); LYMPHOCYTES ABSOLUTE AUTO 0.56 K/mm3 (0.84-5.20); LYMPHOCYTES PERCENT AUTO 5 % (21-46); MONOCYTES ABSOLUTE AUTO 1.05 K/mm3 (0.16-1.47); MONOCYTES PERCENT AUTO 10 % (4-13); Mean Corpuscular HGB 29.2 pg (26.0-34.0); Mean Corpuscular HGB Conc 32.7 g/dL (31.5-36.5); Mean Corpuscular Volume 89 fL (80-100); Mean Platelet Volume 10.2 fL (9.1-12.4); NEUTROPHILS ABSOLUTE AUTO 8.86 K/mm3 (1.96-9.15); NEUTROPHILS PERCENT AUTO 82 % (41-73); Platelet Count 97 K/mm3 (150-400); RDW Standard Deviation 59.6 fL (35.1-46.3); Red Blood Cell Count 2.88 M/mm3 (4.30-5.90); White Blood Cell Count 10.74 K/mm3 (4.00-11.30)
[2021-09-01 06:23] LABS: Alanine Aminotransfer (ALT/SGP 32 U/L (12-78); Albumin, Blood 2.4 g/dL (3.4-5.0); Albumin/Globulin Ratio 0.6 (0.8-1.8); Alk Phos 92 U/L (50-136); Anion Gap 6 mmol/L (6-16); Aspartate Aminotrans (AST/SGOT 42 U/L (12-37); Bilirubin, Total 1.4 mg/dL (0.1-1.0); Blood Urea Nitrogen 35 mg/dL (8-24); Bun/Creatinine Ratio 41.5 (12.0-20.0); CO2, Blood 30 mmol/L (21-32); Calcium, Blood 8.8 mg/dL (8.5-10.1); Chloride, Blood 98 mmol/L (98-108); Creatinine, Blood 0.84 mg/dL (0.60-1.20); Globulin, Blood 3.8 g/dL (2.2-4.0); Glomerular Filtration Rate >60 (60-); Glucose, Blood 108 mg/dL (70-99); Potassium, Blood 3.6 mmol/L (3.5-5.5); Sodium, Blood 134 mmol/L (136-145); Total Protein, Blood 6.2 g/dL (6.4-8.2)
--- NOTE | 2021-09-01 15:50 | NUR ---
Per Dr. Falk and today's PT recommendation, patient to discharge to SNF. I have contacted [facility], and faxed a patient packet to Ashley, tax collection coordinator. She states that all three locations in the [place] area have openings and after assessing the referral, would have placement for the patient tomorrow if accepted. I called [facility] to inquire cost of gurney transport ($805) vs. wheelchair ($228). I went to discuss this went the patient in his room, who was sitting up, alert but confused. Patient's nurse was also with me. Patient prefers gurney transport and states the cost is no problem. He is agreeable to transfer to [place] [facility]. I called and spoke with Antonia Galindo, pt's caregiver who states she will assist the patient in making the payment for the remaining balance to [facility] for gurney transport to [facility]. I plan to follow up with [facility] tomorrow morning regarding this discharge plan. Have
--- NOTE | 2021-09-01 17:55 | NUR ---
Review of patient's records today- 09/01/2021 indicates that patient will be discharging to SNF. No further interventions required. Ashley Jimenez Referral Liaison
--- NOTE | 2021-09-01 18:11 | NUR ---
PT IS A/OX3 THIS AM, SLOW TO RESPOND. HAS PERIODS OF CONFUSION. PT IS BEDREST AT THIS TIME. PT REPOSITIOND TODAY. PT HAS PAIN WITH REPOSITIONING. PT WAS MEDICATED FOR PAIN THIS AM. PTS BLE'S ELEVATED ON PILLOWS. LEGS ARE WEEPING, SCROTUM SWOLLEN AND ELEVATED, HARRY CATH DRAINING DARK URINE. PT IS ON CPAP WHILE ASLEEP. O2 @ 2.5L/MIN WHILE AWAKE. PTS CAREGIVER IS AT THE BEDSIDE THIS AFTERNOONAND ASSITED THE PT WITH HIS MEAL PT ATE WELL. PT WAS MORE ALERT WHILE THEY WERE AT THE BEDSIDE. CALL LIGHT IN REACH
--- NOTE | 2021-09-02 05:31 | NUR ---
PM SHIFT SUMMARY: PATIENT SLEPT VAST MAJORITY OF THE EVENING. I HEARD HIM SPEAKING ONCCE AND WENT IN, BUT ALL HE ASKED FOR WAS SOME WATER TO SIP ON. I ASKED IF THERE WERE ANY OTHER CONCERNS AND HE STATED HE THERE WERE NOT. HIS SPEECH STILL SEEMED SLURRED DURING OUR BRIEF CONVERSATION. PER AM RN REPORT, PATIENT'S FAMILY IS REFUSING SNF PLACEMENT AND FEELS THEY CAN TAKE CARE OF HIM AT HOME.
[2021-09-02 09:49] LABS: BASOPHILS ABSOLUTE AUTO 0.04 K/mm3 (0.00-0.23); BASOPHILS PERCENT AUTO 0 % (0-2); EOSINOPHILS ABSOLUTE AUTO 0.07 K/mm3 (0.00-0.68); EOSINOPHILS PERCENT AUTO 1 % (0-6); Hematocrit 25.7 % (37.0-53.0); Hemoglobin 8.5 g/dL (13.5-17.5); IMMATURE GRAN ABSOLUTE AUTO 0.15 K/mm3 (0.00-0.10); IMMATURE GRAN PERCENT AUTO 1 % (0-1); LYMPHOCYTES ABSOLUTE AUTO 0.52 K/mm3 (0.84-5.20); LYMPHOCYTES PERCENT AUTO 4 % (21-46); MONOCYTES ABSOLUTE AUTO 1.04 K/mm3 (0.16-1.47); MONOCYTES PERCENT AUTO 8 % (4-13); Mean Corpuscular HGB 29.2 pg (26.0-34.0); Mean Corpuscular HGB Conc 33.1 g/dL (31.5-36.5); Mean Corpuscular Volume 88 fL (80-100); Mean Platelet Volume 9.6 fL (9.1-12.4); NEUTROPHILS ABSOLUTE AUTO 11.62 K/mm3 (1.96-9.15); NEUTROPHILS PERCENT AUTO 87 % (41-73); Platelet Count 119 K/mm3 (150-400); RDW Coefficient Variation 18.4 % (11.7-14.2); RDW Standard Deviation 59.3 fL (35.1-46.3); Red Blood Cell Count 2.91 M/mm3 (4.30-5.90); White Blood Cell Count 13.44 K/mm3 (4.00-11.30)
[2021-09-02 09:57] LABS: Anion Gap 6 mmol/L (6-16); Blood Urea Nitrogen 40 mg/dL (8-24); Bun/Creatinine Ratio 45.6 (12.0-20.0); CO2, Blood 27 mmol/L (21-32); Calcium, Blood 8.7 mg/dL (8.5-10.1); Chloride, Blood 99 mmol/L (98-108); Creatinine, Blood 0.88 mg/dL (0.60-1.20); Glomerular Filtration Rate >60 (60-); Glucose, Blood 134 mg/dL (70-99); Sodium, Blood 132 mmol/L (136-145)
--- NOTE | 2021-09-02 16:26 | NUR ---
Per Dr. Falk request I went and discussed discharge plan again with the patient and his caregiver, Antonia Galindo. I printed out the three [facility]ilities that I faxed a referral to yesterday ([facility], [facility], and [facility]. I reiterated that all three locations as of yesterday have openings and he would need a medical transport by either wheelchair or gurney. We discussed expense of medical transport options and which option would be safest. Patient does not want to pay $805 to go by gurney. Patient did not remember our conversation yesterday or our conversations on 08/30/2021. I plan to visit the patient again tomorrow morning.
--- NOTE | 2021-09-02 17:12 | NUR ---
END OF SHIFT SUMMARY: PT AOX SELF, DISORIENTED TO PLACE/TIME/SITUATION. PT HAD INCREASED COUGHING AFTER FLUID INTAKE, SLT EVAL. SPEECH ORDERED PUREE DIET, AND DYSPHAGSIA PRECAUTIONS. DRESSINGS CHANGED TO COCCYX/THIGHS. VITALS STABLE THIS SHIFT.
[2021-09-03 05:20] LABS: PCO2 Arterial 39.9 mmHg (35-45); PO2 Arterial 118 mmHg (80-100); pH Blood Arterial 7.45 (7.35-7.45)
--- NOTE | 2021-09-03 06:24 | NUR ---
SHIFT SUMMARY Pt alert, oriented to self, painful with repositioning but falls asleep easily after. Pt rested well majority of shift, CPAP in place during the night, tolerated well with O2 sats in the high 90's. Lungs diminished, no distress noted. Zarate in place with joellen urine noted. Pt has generalized 2-3+ edema and skin weeping to BLE's. Skin very fragile with several skin tears to bilat arms and several blood blisters noted and open areas to R thigh and buttocks, bordered foam drsg in place. Pt incontinent of loose stool x 3 this shift, radha care done and linen/brief changed as needed. Pt requiring max assist to reposition. R knee immobilizer in place. VSS, anticipate d/c when medically stable and placement determined.
--- NOTE | 2021-09-03 18:35 | NUR ---
SHIFT SUMMARY PT HAS BEEN CONFUSED AXO X3 ALL DAY. THIS MORNING HE WAS ALERT AND ABLE TO ANSWER SOME QUESTIONSS, BUT BECAME MORE CONFUSED THE DAY WENT ON. HE WAS NON COMPLIANT WITH HIS BEDDING CHANGES AND BECAME ESPECIALLY CONFUSED AND ANGRY DURING THESE TIMES. THIS EVENING HE HAS BEEN SLEEPING, NOT AWAKE ENOUGH TO TAKE HIS PILLS OR HIS MEALS. A CHEST X RAY WAS ORDERED FOR HIM HIS CAREGIVER REPORTS "THE LAST TIME HE ACTED LIKE THIS HE HAD PNEUMONIA." THIS INFORMATION WAS RELAYED TO THE DR. HE BLOOD PRESSURE CONTINUE TO BE SOFT BUT HE IS BEING DIURESED NO FLUIDS HAVE BEEN ORDERED. PT IS WEARING CPAP CURRENTLY HE HAS BEEN SLEEPING. WILL CONTINUE TO MONITOR.
--- NOTE | 2021-09-04 05:38 | NUR ---
SHIFT SUMMARY PT ALERT TO PERSON AND PLACE AND FOLLOWS SIMPLE COMMANDS,HARRY CATHETER PATENT AND DRAINING SCAR URINE, HARRY CARE DONE.IMMOBILZER INTACT TO RLE, GENERALIZED EDEMA NOTED AND ABD DISTENDED, MULTIPLE DRSGS INTACT TO WOUNDS, DRSG CHANGED TO BUTTOCKS AT 2155 WITH SEVERAL OPENS AREAS WITH SANGUINOUS DRAINAGE.TURNED AND REPOSITIONED Q2 HRS. RESTING QUIETLY WITH NO DISTRESS NOTED.
[2021-09-04 13:12] LABS: Anion Gap 8 mmol/L (6-16); Blood Urea Nitrogen 44 mg/dL (8-24); Bun/Creatinine Ratio 55.4 (12.0-20.0); CO2, Blood 28 mmol/L (21-32); Calcium, Blood 8.6 mg/dL (8.5-10.1); Chloride, Blood 100 mmol/L (98-108); Creatinine, Blood 0.79 mg/dL (0.60-1.20); Glomerular Filtration Rate >60 (60-); Glucose, Blood 98 mg/dL (70-99); Potassium, Blood 3.4 mmol/L (3.5-5.5); Sodium, Blood 136 mmol/L (136-145)
--- NOTE | 2021-09-04 15:28 | NUR ---
PT WOUNDS PHOTOGRAPHED AND BED BATH PROVIDED MONIE RN, JESSICA RN, CHRISTA RN, GIL RN, AND 2 AUTOMATIC NAILING MACHINE FEEDER STUDENTS PROVIDED PT W/ BED BATH, BRIEF CHANGE, AND REPOSITION. PRESSURE ULCERS NOTED TO COCCYX, R HIP AREA, WOUNDS NOTED TO BILATERAL CREASES UNDER BUTTOCKS, PRESSURE ULCER NOTED UNDER RLE IMMOBILIZER, PADDING PROVIDED AND ALL WOUNDS CLEANED, DRESSED, PHOTOGRAPHED AND DATED. SCATTERED ABRASIONS, DISCOLORATION. BLOOD BLISTER X2 TO FRONT OF R PELVIC AREA. WOUND NOTED TO L MID BACK. PT RELOCATED TO AN AIR BED, WITH LIFT SHEET IN PLACE. PT DID HAVE SEVERAL EPISODES OF LIQUID STOOL DURING CHANGING/BATHING, SPECIMEN COLLECTED AND SENT TO LAB PENDING PANEL, PT PLACED IN OBSERVATION FOR CDIFF @ THIS TIME PER DR. SAMPSON.
--- NOTE | 2021-09-04 16:28 | NUR ---
RECTAL TUBE PLACED @ THIS TIME PT TOLERATED WELL. DRAINING TO GRAVITY, PT RESTING COMFORTABLY IN BED.
--- NOTE | 2021-09-04 19:37 | NUR ---
SHIFT SUMMARY PT A&O X2 SELF AND TOWN. PT IN PLEASENT MOOD, THOUGH DOES NEED OCC REORIENTATION. WOUND CARE, BED BATH, AND NEW BED TODAY-SEE NOTE. WOUND PHOTOS IN PT CHART. PT DID APPEAR SHAKEY AROUND 1645, BS STABLE, VSS. WILL CONTINUE TO MONITOR. PASSED ON TO NIGHT RN PER REPORT. PPP, LLE ELEVATED ON PILLOW. PT DENIES PAIN @ THIS TIME. CALL LIGHT W/ IN REACH. HARRY DRAINING DARK YELLOW/SCAR URINE. RECTAL TUBE MIN. OUTPUT @ THIS TIME. TELE PACED @ 63.
[2021-09-04 21:04] LABS: C DIFFICILE DNA POSITIVE (Negative)
--- NOTE | 2021-09-05 07:53 | NUR ---
SHIUFT SUMMARY: PATIENT WAS WIDE AWAKE AT START OF SHIFT AND ATE 100% OF DINNER. STOOL FOR C-DIFF IS POSSITIVE. RECTAL TUBE HAS SOME LEAKING. THERE IS STOOL IN THE TUBE BUT POSITIONING TO KEEP WEIGHT OFF TUBE IS VERY DIFFICULT. PATIENT WOKE CONFUSED AND WAS FOUND WITH CPAP MASK OFF. PILLOWS AND BLANKETS ON THE FLOOR. PATIENT WAS ASKING OFR ASSISTANCE OOB. PATIENT IS REORIENTED TO THE FACT THAT HE HAS A BROKED LEG. IMMOBILIZER IS ON. DURING T&P THERE WAS A SKIN TEAR ON THE RIGHT HAND.
--- NOTE | 2021-09-05 19:22 | NUR ---
SHIFT SUMMARY PT A&O X2-3 AND IN PLEASENT MOOD T/O SHIFT. VISITORS IN T/O VISITING HOURS. RECTAL TUBE DRAINING TO GRAVITY. HARRY IN PLACE DRAINING TO GRAVITY. BETTY STARTED THIS SHIFT. PLAN TO MONITOR PT FOR S/S OF DEHYDRATION DUE TO CDIFF SYMPTOMS. ENCOURAGE ORAL INTAKE. 2L O2 VIA NC, 100%. PLAN TO HAVE WOUND CARE CONSULT TOMARROW. VSS. CALL LIGHT W/IN REACH.
[2021-09-06 04:52] LABS: BASOPHILS ABSOLUTE AUTO 0.03 K/mm3 (0.00-0.23); BASOPHILS PERCENT AUTO 0 % (0-2); EOSINOPHILS ABSOLUTE AUTO 0.06 K/mm3 (0.00-0.68); EOSINOPHILS PERCENT AUTO 1 % (0-6); Hematocrit 24.4 % (37.0-53.0); Hemoglobin 7.8 g/dL (13.5-17.5); IMMATURE GRAN ABSOLUTE AUTO 0.18 K/mm3 (0.00-0.10); IMMATURE GRAN PERCENT AUTO 2 % (0-1); LYMPHOCYTES ABSOLUTE AUTO 0.53 K/mm3 (0.84-5.20); LYMPHOCYTES PERCENT AUTO 6 % (21-46); MONOCYTES ABSOLUTE AUTO 0.88 K/mm3 (0.16-1.47); MONOCYTES PERCENT AUTO 10 % (4-13); Mean Corpuscular HGB 28.7 pg (26.0-34.0); Mean Corpuscular Volume 90 fL (80-100); Mean Platelet Volume 9.5 fL (9.1-12.4); NEUTROPHILS ABSOLUTE AUTO 7.56 K/mm3 (1.96-9.15); NEUTROPHILS PERCENT AUTO 82 % (41-73); Platelet Count 178 K/mm3 (150-400); RDW Coefficient Variation 18.6 % (11.7-14.2); RDW Standard Deviation 60.4 fL (35.1-46.3); Red Blood Cell Count 2.72 M/mm3 (4.30-5.90); White Blood Cell Count 9.24 K/mm3 (4.00-11.30)
[2021-09-06 05:14] LABS: Anion Gap 8 mmol/L (6-16); Blood Urea Nitrogen 44 mg/dL (8-24); Bun/Creatinine Ratio 54.9 (12.0-20.0); CO2, Blood 28 mmol/L (21-32); Calcium, Blood 8.6 mg/dL (8.5-10.1); Chloride, Blood 99 mmol/L (98-108); Glomerular Filtration Rate >60 (60-); Glucose, Blood 127 mg/dL (70-99); Potassium, Blood 3.5 mmol/L (3.5-5.5); Sodium, Blood 135 mmol/L (136-145)
--- NOTE | 2021-09-06 06:46 | NUR ---
SHIFT SUMMARY: PATIENT IS HAVING DIFFICULTY SWALLOWING VANCO CAPSULE THIS AM. DR WELDON WAS NOTIFIED AND CHANGED WAS GOING TO CHANGE THE ORDER TO LIQIUD FORM BUT PER PHARMACY THIS IS NOT AVAILABLE. PER PHARMACY CAPSULE CAN NOT BE OPENED. WILL PASS ON IN REPORT TO ON COMING RN.
--- NOTE | 2021-09-06 09:51 | NUR ---
This morning I spoke with Ashley at [facility] in [place] [phone] regarding the SNF referral for the patient. She requested weekend updates be faxed [phone] and said likely has placement at [place] when appropriate for discharge. I faxed over updates promptly.
--- NOTE | 2021-09-06 14:51 | NUR ---
PATIENTS PULSE OX DROPPED TO 87%, RN ADJUSTED O2 FROM 2L TO 3L. PT IS CURRENTLY STATING AT 91-92%. PATIENT'S LUNGS SOUNDS ARE CRACKLING. INFORMED.
--- NOTE | 2021-09-06 16:23 | NUR ---
Wound care recommendation; keep skin clean and dry, apply barrier cream coleman thick to buttocks cover with bordered foam. Change daily or when soiled or dislodged. Continue to reposition Q2hrs
--- NOTE | 2021-09-07 04:14 | NUR ---
FOUNTAIN CLERK SUMMARY RESTING QUIETLY WITH OCCASIONAL INTERRUPTIONS FOR VITAL SIGNS AND MEDS. REPOSITIONED INTERMITTENTLY FOR COMFORT AND SKIN MAINTENANCE. RECTAL TUBE INTACT, HARRY DRAINING. SPEECH REMAINS GARBLED. C-DIFF PRECAUTIONS MAINTAINED. CALL LIGHT IN REACH
[2021-09-07 04:43] LABS: BASOPHILS ABSOLUTE AUTO 0.05 K/mm3 (0.00-0.23); BASOPHILS PERCENT AUTO 0 % (0-2); EOSINOPHILS ABSOLUTE AUTO 0.03 K/mm3 (0.00-0.68); EOSINOPHILS PERCENT AUTO 0 % (0-6); Hematocrit 23.6 % (37.0-53.0); Hemoglobin 7.6 g/dL (13.5-17.5); IMMATURE GRAN ABSOLUTE AUTO 0.15 K/mm3 (0.00-0.10); IMMATURE GRAN PERCENT AUTO 1 % (0-1); LYMPHOCYTES ABSOLUTE AUTO 0.61 K/mm3 (0.84-5.20); LYMPHOCYTES PERCENT AUTO 4 % (21-46); MONOCYTES ABSOLUTE AUTO 0.76 K/mm3 (0.16-1.47); MONOCYTES PERCENT AUTO 5 % (4-13); Mean Corpuscular HGB 28.6 pg (26.0-34.0); Mean Corpuscular HGB Conc 32.2 g/dL (31.5-36.5); Mean Corpuscular Volume 89 fL (80-100); Mean Platelet Volume 9.5 fL (9.1-12.4); NEUTROPHILS ABSOLUTE AUTO 12.49 K/mm3 (1.96-9.15); NEUTROPHILS PERCENT AUTO 89 % (41-73); Platelet Count 176 K/mm3 (150-400); RDW Coefficient Variation 18.7 % (11.7-14.2); RDW Standard Deviation 60.2 fL (35.1-46.3); Red Blood Cell Count 2.66 M/mm3 (4.30-5.90); White Blood Cell Count 14.09 K/mm3 (4.00-11.30)
[2021-09-07 05:09] LABS: Alanine Aminotransfer (ALT/SGP 56 U/L (12-78); Albumin/Globulin Ratio 0.5 (0.8-1.8); Alk Phos 134 U/L (50-136); Anion Gap 7 mmol/L (6-16); Aspartate Aminotrans (AST/SGOT 66 U/L (12-37); Bilirubin, Total 1.7 mg/dL (0.1-1.0); Blood Urea Nitrogen 52 mg/dL (8-24); Bun/Creatinine Ratio 61.6 (12.0-20.0); CO2, Blood 26 mmol/L (21-32); Calcium, Blood 8.8 mg/dL (8.5-10.1); Chloride, Blood 102 mmol/L (98-108); Creatinine, Blood 0.84 mg/dL (0.60-1.20); Globulin, Blood 4.2 g/dL (2.2-4.0); Glomerular Filtration Rate >60 (60-); Glucose, Blood 111 mg/dL (70-99); Potassium, Blood 3.5 mmol/L (3.5-5.5); Sodium, Blood 135 mmol/L (136-145); Total Protein, Blood 6.2 g/dL (6.4-8.2)
--- NOTE | 2021-09-07 05:52 | NUR ---
RIGHT LEG IMMOBILIZER IN PLACE. WAS REPOSITIONED TO ALLOW RECTAL TUBE TO DRAIN BETTER. CALL LIGHT IN REACH. VERBAL RESPONSE MORE UNDERSTANDABLE THAN NOTED EARLIER.
--- NOTE | 2021-09-07 15:43 | NUR ---
Feliz Ramirez with [facility] in [place], due to patient being positive for c.diff he will need a private room and they do not have that available at this time. Patient cannot be accepted to SNF with a rectal tube. She advises to keep sending updates and let her know when rectal tube is DC.
--- NOTE | 2021-09-07 16:33 | NUR ---
Pt. is awake and in bed. Pt. welcomes my visit. Pt. pleasant yet displays moments of confusion. Listen empathetically. Facilitate a life review. Pt. was able to recall time as a boy in [place], and also recall times recently when he worshipped with a friend at a worship gathering in [facility]. Pt. verbalized distress over having lost his some years back. Pastoral grief eligibility counselor is given. Prayed with pt. Pt. displayed evidence of reduced stress and accceptance. Verbalized gratitude for the spiritual care visit, and invited me to return.
--- NOTE | 2021-09-07 16:49 | NUR ---
Called and updated patient's nurse about pending transfer to [facility].
--- NOTE | 2021-09-07 19:02 | NUR ---
DRESSING CHANGED ON PATIENT BOTTOM AND LLE. WOUND BY SACRUM IS BLACK NOT OPEN. MULTIPLE RED GOLD THROUGH OUT THE AREA. AREA CLEANED WITH WOUND LEG BREAKER AND FOAM DRESSINGS APPLIED. IMMBOLIZER REPOSTIONED BACK TO UPPER PART OF LEG. NO REDDNESS AND SKIN APPEARS TO BE INTACT AT THE GROIN AND SCROTUM. RECTAL TUBE STILL IN PLACE AND OUTPUTING. HARRY OUTPUTING AND CARE DONE. PATIENT IS DRINKING WELL, APPETITE IS BETTER IN THE MORNING, AND LESS AT DINNER TIME. PATIENT CURRENTLY USING 2L O2 VIA NC.
--- NOTE | 2021-09-07 19:21 | NUR ---
SMILING. WATCHING TV. CALL LIGHT IN REACH
[2021-09-08 04:42] LABS: BASOPHILS ABSOLUTE AUTO 0.04 K/mm3 (0.00-0.23); BASOPHILS PERCENT AUTO 0 % (0-2); EOSINOPHILS PERCENT AUTO 1 % (0-6); Hematocrit 22.3 % (37.0-53.0); Hemoglobin 7.3 g/dL (13.5-17.5); IMMATURE GRAN ABSOLUTE AUTO 0.11 K/mm3 (0.00-0.10); IMMATURE GRAN PERCENT AUTO 1 % (0-1); LYMPHOCYTES PERCENT AUTO 4 % (21-46); MONOCYTES ABSOLUTE AUTO 0.79 K/mm3 (0.16-1.47); MONOCYTES PERCENT AUTO 6 % (4-13); Mean Corpuscular HGB Conc 32.7 g/dL (31.5-36.5); Mean Corpuscular Volume 89 fL (80-100); Mean Platelet Volume 8.9 fL (9.1-12.4); NEUTROPHILS ABSOLUTE AUTO 10.75 K/mm3 (1.96-9.15); NEUTROPHILS PERCENT AUTO 88 % (41-73); Platelet Count 173 K/mm3 (150-400); RDW Coefficient Variation 18.9 % (11.7-14.2); RDW Standard Deviation 61.1 fL (35.1-46.3); Red Blood Cell Count 2.52 M/mm3 (4.30-5.90); White Blood Cell Count 12.29 K/mm3 (4.00-11.30)
--- NOTE | 2021-09-08 04:53 | NUR ---
CELLOPHANER SUMMARY C-DIFF PRECAUTIONS CONTINUE. RECTAL TUBE INTACT, DRAINING DARK LIQUID STOOL. RECEVING PO VANCOMYCIN Q 6 HRS. TOLERATES MEDS WITH APPLESAUCE. VERBAL RESPONSE BETTER THAN NOTED 24 HR PREVIOUS, WAS GARBLED THEN, MORE UNDERSTANDABLE AT THIS TIME. LEG IMMOBILIZER INTACT OF RIGHT LEG. REPOSITIONED INTERMITTENTLY. BED LINEN CHANGED NEEDED. CALL LIGHT IN REACH. RAILS UP X 3. ALARM ON. CONT O2 SATS - 90'S. WILL CONTINUE TO MONITOR. DRESSINGS OF BUTTOCKS. ARMS, COCCYX INTACT.
[2021-09-08 05:07] LABS: Anion Gap 5 mmol/L (6-16); Blood Urea Nitrogen 48 mg/dL (8-24); Bun/Creatinine Ratio 63.3 (12.0-20.0); CO2, Blood 32 mmol/L (21-32); Calcium, Blood 8.5 mg/dL (8.5-10.1); Chloride, Blood 102 mmol/L (98-108); Creatinine, Blood 0.76 mg/dL (0.60-1.20); Glomerular Filtration Rate >60 (60-); Glucose, Blood 104 mg/dL (70-99); Potassium, Blood 3.2 mmol/L (3.5-5.5); Sodium, Blood 139 mmol/L (136-145)
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
--- NOTE | 2021-09-09 02:03 | NUR ---
INSURANCE CLAIMS SPECIALIST SUMMARY PATIENT HAD A FAIR SHIFT. HIS VITALS WERE STABLE. WOUND CLEANSED AND COVERED WITH MEPLEX. ASSESSMENT DONE AND DOCUMENTED. HE DID NOT LODGE ANY COMPLAIN BUT WHILE TURNING HIM IT HURTS. HE WORE HIS CPAP OVER THE NIGHT. WILL CONTINUE TO MONITOR HIM.
[2021-09-09 06:45] LABS: BASOPHILS ABSOLUTE AUTO 0.06 K/mm3 (0.00-0.23); BASOPHILS PERCENT AUTO 0 % (0-2); EOSINOPHILS ABSOLUTE AUTO 0.08 K/mm3 (0.00-0.68); EOSINOPHILS PERCENT AUTO 1 % (0-6); Hematocrit 23.8 % (37.0-53.0); Hemoglobin 7.7 g/dL (13.5-17.5); IMMATURE GRAN ABSOLUTE AUTO 0.11 K/mm3 (0.00-0.10); IMMATURE GRAN PERCENT AUTO 1 % (0-1); LYMPHOCYTES ABSOLUTE AUTO 0.45 K/mm3 (0.84-5.20); LYMPHOCYTES PERCENT AUTO 3 % (21-46); MONOCYTES ABSOLUTE AUTO 1.01 K/mm3 (0.16-1.47); MONOCYTES PERCENT AUTO 6 % (4-13); Mean Corpuscular HGB 29.4 pg (26.0-34.0); Mean Corpuscular HGB Conc 32.4 g/dL (31.5-36.5); Mean Corpuscular Volume 91 fL (80-100); Mean Platelet Volume 9.8 fL (9.1-12.4); NEUTROPHILS ABSOLUTE AUTO 14.44 K/mm3 (1.96-9.15); NEUTROPHILS PERCENT AUTO 89 % (41-73); Platelet Count 226 K/mm3 (150-400); RDW Coefficient Variation 19.2 % (11.7-14.2); RDW Standard Deviation 63.2 fL (35.1-46.3); Red Blood Cell Count 2.62 M/mm3 (4.30-5.90); White Blood Cell Count 16.15 K/mm3 (4.00-11.30)
[2021-09-09 07:07] LABS: Anion Gap 6 mmol/L (6-16); Blood Urea Nitrogen 49 mg/dL (8-24); Bun/Creatinine Ratio 56.1 (12.0-20.0); CO2, Blood 31 mmol/L (21-32); Calcium, Blood 8.5 mg/dL (8.5-10.1); Chloride, Blood 104 mmol/L (98-108); Creatinine, Blood 0.87 mg/dL (0.60-1.20); Glomerular Filtration Rate >60 (60-); Glucose, Blood 105 mg/dL (70-99); Potassium, Blood 3.3 mmol/L (3.5-5.5); Sodium, Blood 141 mmol/L (136-145)
[2021-09-09 07:11] LABS: HBSAG SCREEN Negative (Negative)
[2021-09-09 09:11] LABS: HCV AB 0.9 (0.0-0.9)
--- NOTE | 2021-09-09 18:47 | NUR ---
PATIENT A/O X1-2, UP IN CHAIR TODAY VIA CEILING LIFT. VSS, ON 2LO2 TO MAINTAIN SATS. RECTAL TUBE IN PLACE WITH SALCEDO LIQUID OUTPUT. HARRY TO GRAVITY. PATIENT TAKES PILLS CRUSHED IN APPLESAUCE. CHANGED TO MS SOFT DIET. MULIPLE WOUNDS T/O, MEPILEX DRESSINGS IN PLACE TO PROTECT. R LEG IMMOBILIZER IN PLACE AT ALL TIMES. TURNING Q2 HOURS. MEDICATING WITH TRAMADOL FOR PAIN WITH STATED RELIEF. GENERALIZED EDEMA, SEVERE SCROTAL EDEMA. FALL PRECAUTIONS IN PLACE PER UNIT PROTOCOL.
--- NOTE | 2021-09-10 02:01 | NUR ---
CHAIR INSPECTOR AND LEVELER SUMMARY PATIENT HAD A FAIR SHIFT. HE IS MORE ALERT AND MORE COOPERATIVE TONIGHT. HE HAD HIS MEDICATIONS AND PAIN MED NEEDED. WOUND DRESSING CHANGED. HAD THE BIPAP ON OVERNIGHT. HIS VITALS REMAINED STABLE. WILL CONTINUE TO MONITOR HIM.
[2021-09-10 04:56] LABS: BASOPHILS ABSOLUTE AUTO 0.04 K/mm3 (0.00-0.23); BASOPHILS PERCENT AUTO 0 % (0-2); EOSINOPHILS ABSOLUTE AUTO 0.14 K/mm3 (0.00-0.68); EOSINOPHILS PERCENT AUTO 1 % (0-6); Hematocrit 22.5 % (37.0-53.0); Hemoglobin 7.2 g/dL (13.5-17.5); IMMATURE GRAN ABSOLUTE AUTO 0.08 K/mm3 (0.00-0.10); IMMATURE GRAN PERCENT AUTO 1 % (0-1); LYMPHOCYTES ABSOLUTE AUTO 0.55 K/mm3 (0.84-5.20); LYMPHOCYTES PERCENT AUTO 4 % (21-46); MONOCYTES ABSOLUTE AUTO 0.98 K/mm3 (0.16-1.47); MONOCYTES PERCENT AUTO 8 % (4-13); Mean Corpuscular Volume 91 fL (80-100); Mean Platelet Volume 9.6 fL (9.1-12.4); NEUTROPHILS ABSOLUTE AUTO 11.34 K/mm3 (1.96-9.15); NEUTROPHILS PERCENT AUTO 86 % (41-73); Platelet Count 210 K/mm3 (150-400); RDW Coefficient Variation 18.9 % (11.7-14.2); RDW Standard Deviation 62.1 fL (35.1-46.3); Red Blood Cell Count 2.48 M/mm3 (4.30-5.90); White Blood Cell Count 13.13 K/mm3 (4.00-11.30)
[2021-09-10 05:18] LABS: Alanine Aminotransfer (ALT/SGP 51 U/L (12-78); Albumin, Blood 1.9 g/dL (3.4-5.0); Albumin/Globulin Ratio 0.4 (0.8-1.8); Alk Phos 155 U/L (50-136); Anion Gap 5 mmol/L (6-16); Aspartate Aminotrans (AST/SGOT 48 U/L (12-37); Bilirubin, Total 1.4 mg/dL (0.1-1.0); Blood Urea Nitrogen 50 mg/dL (8-24); Bun/Creatinine Ratio 61.8 (12.0-20.0); CO2, Blood 30 mmol/L (21-32); Calcium, Blood 8.5 mg/dL (8.5-10.1); Chloride, Blood 105 mmol/L (98-108); Creatinine, Blood 0.81 mg/dL (0.60-1.20); Globulin, Blood 4.4 g/dL (2.2-4.0); Glomerular Filtration Rate >60 (60-); Glucose, Blood 117 mg/dL (70-99); Potassium, Blood 3.6 mmol/L (3.5-5.5); Sodium, Blood 140 mmol/L (136-145); Total Protein, Blood 6.3 g/dL (6.4-8.2)
--- NOTE | 2021-09-10 18:40 | NUR ---
END OF SHIFT SUMMARY: PATIENT HAD INCREASED COUGHING WITH WATER INTAKE, COUNTER MANAGER EVMARLIN. CHANGED POTASSIUM PO TO IV. SUPERVISED/ASSIT MEALS, PATIENT DOES WELL WHEN GIVEN SMALL SIPS OF WATER. CHANGED DRESSING ON COCCYX. HARRY/ RECTAL TUBE IN PLACE, DRAINING WELL. VITAL STABLE.
--- NOTE | 2021-09-11 03:46 | NUR ---
CUSTOMER SALES ADVISOR SUMMARY PATIENT WAS A LITTLE MORE CONFUSED AND INITIALLY REFUSED HIS MEDS AND REMOVING HIS CLOTHES. HE LATER WAS MORE COOPERATIVE NAD TOOK HIS MEDS. HE STATED NOT IN PAIN WHEN ASKED. HIS V/S WERE STABLE AND HIS WOUND DRESSING CHANGED. WILL CONTINUE TO MONITOR HIM.
[2021-09-11 04:48] LABS: BASOPHILS ABSOLUTE AUTO 0.04 K/mm3 (0.00-0.23); BASOPHILS PERCENT AUTO 0 % (0-2); EOSINOPHILS ABSOLUTE AUTO 0.08 K/mm3 (0.00-0.68); EOSINOPHILS PERCENT AUTO 1 % (0-6); Hematocrit 24.9 % (37.0-53.0); Hemoglobin 7.9 g/dL (13.5-17.5); IMMATURE GRAN ABSOLUTE AUTO 0.13 K/mm3 (0.00-0.10); IMMATURE GRAN PERCENT AUTO 1 % (0-1); LYMPHOCYTES ABSOLUTE AUTO 0.52 K/mm3 (0.84-5.20); LYMPHOCYTES PERCENT AUTO 4 % (21-46); MONOCYTES ABSOLUTE AUTO 0.92 K/mm3 (0.16-1.47); MONOCYTES PERCENT AUTO 8 % (4-13); Mean Corpuscular HGB 28.6 pg (26.0-34.0); Mean Corpuscular HGB Conc 31.7 g/dL (31.5-36.5); Mean Corpuscular Volume 90 fL (80-100); Mean Platelet Volume 9.8 fL (9.1-12.4); NEUTROPHILS PERCENT AUTO 86 % (41-73); Platelet Count 261 K/mm3 (150-400); RDW Coefficient Variation 19.4 % (11.7-14.2); RDW Standard Deviation 62.3 fL (35.1-46.3); Red Blood Cell Count 2.76 M/mm3 (4.30-5.90); White Blood Cell Count 12.09 K/mm3 (4.00-11.30)
[2021-09-11 05:13] LABS: Alanine Aminotransfer (ALT/SGP 53 U/L (12-78); Albumin, Blood 2.1 g/dL (3.4-5.0); Albumin/Globulin Ratio 0.4 (0.8-1.8); Alk Phos 171 U/L (50-136); Anion Gap 6 mmol/L (6-16); Aspartate Aminotrans (AST/SGOT 44 U/L (12-37); Bilirubin, Total 1.5 mg/dL (0.1-1.0); Blood Urea Nitrogen 52 mg/dL (8-24); Bun/Creatinine Ratio 69.9 (12.0-20.0); CO2, Blood 31 mmol/L (21-32); Calcium, Blood 8.9 mg/dL (8.5-10.1); Chloride, Blood 104 mmol/L (98-108); Creatinine, Blood 0.74 mg/dL (0.60-1.20); Ferritin, Serum 390 ng/mL (26-388); Globulin, Blood 4.9 g/dL (2.2-4.0); Glomerular Filtration Rate >60 (60-); Glucose, Blood 118 mg/dL (70-99); Potassium, Blood 3.3 mmol/L (3.5-5.5); Sodium, Blood 141 mmol/L (136-145)
--- NOTE | 2021-09-11 18:33 | NUR ---
PATIENT'S TWO SACRUM WOUNDS ARE WORSENING; BOTH ARE LARGER COMPARED TO LAST WEEK. LEFT SACRUM WOUND IS NOW BLEEDING AND OPEN. BOTH WOUNDS ARE BLACK, SKIN BLANCHING TO TOUCH AROUND THE OUTSIDE OF THE WOUNDS. SKIN INBETWEEN BOTH WOUNDS IS PEELING AND BRIGHT RED. PATIENT IS BEENING TURNED EVERY TWO HOURS. PATIENT CURRENTLY HAS RECTAL TUBE AND HARRY. NO WOUND CARE ORDERS; CARE IS CLEANING THE AREA AND FOAM DRESSINGS APPIED. PHOTOS OF DISCRIBED WOUNDS HAVE BEEN TAKEN AND ARE IN THE PATIENT'S CHART. MD INFORMED OF CHANGE. NO NEW ORDERS RECEIVED.
--- NOTE | 2021-09-12 03:02 | NUR ---
SHIFT SUMMARY PATIENT HAD NO ACUTE CHANGES OBSERVED. ALERT TO SELF AND BEDREST. RECTAL TUBED WITH SOME LEAKAGE. HARRY PATENT AND DRIANING TO GRAVITY. MULTIPLE WOUND DRESSINGS THROUGHOUT. VSS/AFEBRILE. DENIES PAIN, SOB, AND N/V. IMMOBILIZER TO RIGHT LEG. CALL LIGHT IN REACH. BED IN LOWEST POSITION. WILL CONTINUE TO MONITOR UNTIL DAY SHIFT NURSE ASSUMES CARE.
[2021-09-12 04:35] LABS: BASOPHILS ABSOLUTE AUTO 0.05 K/mm3 (0.00-0.23); BASOPHILS PERCENT AUTO 0 % (0-2); EOSINOPHILS ABSOLUTE AUTO 0.05 K/mm3 (0.00-0.68); EOSINOPHILS PERCENT AUTO 0 % (0-6); Hemoglobin 7.7 g/dL (13.5-17.5); IMMATURE GRAN ABSOLUTE AUTO 0.08 K/mm3 (0.00-0.10); IMMATURE GRAN PERCENT AUTO 1 % (0-1); LYMPHOCYTES ABSOLUTE AUTO 0.54 K/mm3 (0.84-5.20); LYMPHOCYTES PERCENT AUTO 4 % (21-46); MONOCYTES ABSOLUTE AUTO 0.88 K/mm3 (0.16-1.47); MONOCYTES PERCENT AUTO 7 % (4-13); Mean Corpuscular HGB 29.1 pg (26.0-34.0); Mean Corpuscular HGB Conc 32.1 g/dL (31.5-36.5); Mean Corpuscular Volume 91 fL (80-100); Mean Platelet Volume 10.1 fL (9.1-12.4); NEUTROPHILS ABSOLUTE AUTO 11.23 K/mm3 (1.96-9.15); NEUTROPHILS PERCENT AUTO 88 % (41-73); Platelet Count 252 K/mm3 (150-400); RDW Coefficient Variation 19.3 % (11.7-14.2); RDW Standard Deviation 63.7 fL (35.1-46.3); Red Blood Cell Count 2.65 M/mm3 (4.30-5.90); White Blood Cell Count 12.83 K/mm3 (4.00-11.30)
[2021-09-12 04:57] LABS: Alanine Aminotransfer (ALT/SGP 48 U/L (12-78); Albumin, Blood 2.1 g/dL (3.4-5.0); Albumin/Globulin Ratio 0.4 (0.8-1.8); Alk Phos 165 U/L (50-136); Anion Gap 6 mmol/L (6-16); Aspartate Aminotrans (AST/SGOT 47 U/L (12-37); Bilirubin, Total 1.6 mg/dL (0.1-1.0); Blood Urea Nitrogen 53 mg/dL (8-24); Bun/Creatinine Ratio 71.5 (12.0-20.0); CO2, Blood 30 mmol/L (21-32); Calcium, Blood 9.1 mg/dL (8.5-10.1); Chloride, Blood 107 mmol/L (98-108); Creatinine, Blood 0.74 mg/dL (0.60-1.20); Globulin, Blood 4.8 g/dL (2.2-4.0); Glomerular Filtration Rate >60 (60-); Glucose, Blood 112 mg/dL (70-99); Potassium, Blood 3.6 mmol/L (3.5-5.5); Sodium, Blood 143 mmol/L (136-145); Total Protein, Blood 6.9 g/dL (6.4-8.2)
--- NOTE | 2021-09-12 23:35 | NUR ---
AWAKE. INTERMITTENT CALLING OUT FOR STAFF TO GET HIS STUFF READY TO GO TO "[facility]". REDIRECTED THAT HE IS IN THE HOSPITAL AND TO DISCUSS DISCHARGE WITH THE MD IN THE AM. VOICED HE WOULD. CALL LIGHT IN REACH
[2021-09-13 04:51] LABS: BASOPHILS ABSOLUTE AUTO 0.05 K/mm3 (0.00-0.23); BASOPHILS PERCENT AUTO 0 % (0-2); EOSINOPHILS ABSOLUTE AUTO 0.05 K/mm3 (0.00-0.68); EOSINOPHILS PERCENT AUTO 0 % (0-6); Hematocrit 24.1 % (37.0-53.0); Hemoglobin 7.9 g/dL (13.5-17.5); IMMATURE GRAN PERCENT AUTO 1 % (0-1); LYMPHOCYTES ABSOLUTE AUTO 0.63 K/mm3 (0.84-5.20); LYMPHOCYTES PERCENT AUTO 4 % (21-46); MONOCYTES ABSOLUTE AUTO 1.14 K/mm3 (0.16-1.47); MONOCYTES PERCENT AUTO 8 % (4-13); Mean Corpuscular HGB 29.2 pg (26.0-34.0); Mean Corpuscular HGB Conc 32.8 g/dL (31.5-36.5); Mean Corpuscular Volume 89 fL (80-100); Mean Platelet Volume 10.4 fL (9.1-12.4); NEUTROPHILS ABSOLUTE AUTO 12.83 K/mm3 (1.96-9.15); NEUTROPHILS PERCENT AUTO 87 % (41-73); Platelet Count 231 K/mm3 (150-400); RDW Coefficient Variation 19.4 % (11.7-14.2); RDW Standard Deviation 62.6 fL (35.1-46.3); Red Blood Cell Count 2.71 M/mm3 (4.30-5.90)
[2021-09-13 05:23] LABS: Alanine Aminotransfer (ALT/SGP 50 U/L (12-78); Albumin, Blood 2.1 g/dL (3.4-5.0); Albumin/Globulin Ratio 0.4 (0.8-1.8); Alk Phos 153 U/L (50-136); Anion Gap 5 mmol/L (6-16); Aspartate Aminotrans (AST/SGOT 44 U/L (12-37); Bilirubin, Total 1.4 mg/dL (0.1-1.0); Blood Urea Nitrogen 53 mg/dL (8-24); Bun/Creatinine Ratio 70.5 (12.0-20.0); CO2, Blood 31 mmol/L (21-32); Chloride, Blood 109 mmol/L (98-108); Creatinine, Blood 0.75 mg/dL (0.60-1.20); Globulin, Blood 4.9 g/dL (2.2-4.0); Glomerular Filtration Rate >60 (60-); Glucose, Blood 117 mg/dL (70-99); Potassium, Blood 3.5 mmol/L (3.5-5.5); Sodium, Blood 145 mmol/L (136-145)
--- NOTE | 2021-09-13 05:39 | NUR ---
SOCIAL SERVICE DIRECTOR SUMMARY AWAKE AT INTERVALS, CALLING OUT AND TALKING LOUDLY IF AGRUING WITH SOME ONE IN THE ROOM, BUT HE IS THE ONLY ONE IN THE ROOM. REPOITIONED OFTEN - SEE CHARTING FOR COMFORT AND RUTHANN CARE DUE TO INCONT OF BOWEL. CALL LIGHT IN REACH. ISOLATION PRECAUTIONS MAINTAINED. HARRY DRAINING. NURSE REQUETED CHARGE NURE TO ASK WOUND NURSE TO REASSESS WOUNDS OF BUTTOCKS AREA.
--- NOTE | 2021-09-13 16:36 | NUR ---
Patient was alert and orient, he spent most of the day sitting in the chair. He was compliant with treatment and medications. He did not complain of pain. Patient appetite was fair, continued to have muse and incont for bowel. Patient needs another woundcare consult, RN notified provider. His wounds on buttocks are worsening and there's no appropriate treatment for it. RN currently applying barrier cream and mepilex as what was ordered prev by the Wound care nurse. Continue to monitor
--- NOTE | 2021-09-13 17:18 | NUR ---
Pt was referred to Palliative Care by PT today for lack of interest in PT. I met with pt, who was very pleasant, but confused in general. According to both PT and OT, pt has not been actively participating in therapy the fast few days. Pt is a 76 yo make with hx of HTN, COPD, deg.disc disease, Type 2 diabetes, gout, HLD, a-fib (chronic), gout, OLIVIA, CAD, aortic valve stenosis. He was diagnosed with non-displaced patella fracture, and cirrhosis of the liver. I spoke to pt's son today, who is next of kin and we discussed pt's current condition, discussed increasing confusion and code status. His son states his dad would not want CPR or mechanical ventilation, and has made this very clear to the son in the past. With v/o from Dr. Delgado, will change pt's code status to DNR. Dr. Delgado to discuss likely prognosis with pt's son tomorrow, and it does appear that pt has full stack web developer caregivers in place that are willing and able to care for the patient at his home. According to Kandice, the pt's son Karri handles pt's finances, including paying the caregivers. Palliative Care will remain available.
--- NOTE | 2021-09-14 07:41 | NUR ---
SHIFT SUMMARY AOX1-SELF & FOLLOWING SIMPLE DIRECTIONS. NONSENSICAL SPEECH & RESPONSES. CONFUSED. ASKED THIS NURSE "WILL YOU GO TO THE MARKET & GET A GALLON OF SUGARFREE FISH?" VERY DROWSY DURING ASSESSMENT, WILL OPEN EYES WHEN ASKED. THIS AM PT REPORTS PAIN IN BACK & SHOULDER WHEN REPOSITIONED, MEDICATED c 25MG ULTRAM. HAD 2 LOOSE MUCUS BM THIS SHIFT. CHANGED & REPOSITIONED. BANDAGES CHANGED ON BOTTOM 2X. HARRY PATENT, DRAINING DARK CRANBERRY TO SCAR COLOR URINE, NO CLOTS NOTED. WORE CPAP WHILE ASLEEP. AWAITING SAFE DC PLAN. CALL LIGHT IN REACH.
--- NOTE | 2021-09-14 17:27 | NUR ---
STOPPED IN TO SEE PATIENT THIS MORNING REQUESTED THAT NURSING STAFF DOCUMENT AND DESCRIBE PATIENTS BM. PATIENT THIS AFTERNOON @ 1700 HAD A MUCOUSY CLEAR BM. PATIENT ALSO HAS AN EXCORIATED AREA ON HIS RIGHT BUTTOCKS THAT IS NOW COVERED WITH A MEPILEX. PATIENTS SKIN IS STILL REDDENED IN RUTHANN AREA. CREAM APPLIED TO HELP PREVENT SKIN BREAK DOWN. MEPLIX IN COCCYX STILL IN TACT DRY.
--- NOTE | 2021-09-15 05:40 | NUR ---
SHIFT SUMMARY AOX2-SELF, PLACE. HAS PERIODS WITH INCREASED CONFUSION. YELL OUT FREQUENTLY WHILE AWAKE. HAS NONSENSICAL RESPONSES @TIMES. VSS. DENIES PAIN, N/V OR DYSPNEA. HARRY PATENT & DRAINING DARK ORANGE URINE. PT HAD 2 BM THIS SHIFT, 1 WAS LOOSE BROWN MUCUS & SOME CLEARNESS OTHER BM COMPLETELY CLEAR JELLY. ALL MEPILEXS CHANGED THIS SHIFT. PT LOSS 2 IVS, ORNAMENTAL METAL ERECTOR APPRENTICE ABLE TO REPLACE IV. TURNED & REPOSITIONED. AWAITING SAFE DC PLAN. CALL LIGHT IN REACH, WCTM.
--- NOTE | 2021-09-15 17:57 | NUR ---
PATIENT DIFFICULT TO AROUSE IN AM BUT WOKEN FOR BREAKFAST. PATIENT ALERT DURING CARES BUT STILL UNABLE TO MAKE COHERENT SENTENCES. PATIENT TODAY WAS ABLE TO IDENTIFY HIS AIRCRAFT LANDING GEAR INSPECTOR AND ATTEMPT TO USE HIS CELL PHONE. SPEECH AND CONVERSATION IMPROVED THE DAY WENT ON. PATIENT'S AIRCRAFT LANDING GEAR INSPECTOR SPOKE WITH PALLIATIVE CARE AND WOULD LIKE TO TAKE PT HOME WITH HOME HEALTH, DECISION WILL NEED TO BE DECIDED BY THE PATIENTS NEXT OF KIN. MORE WOUNDS HAVE DEVELOPED ON PATIENT AND MICOZANOLE POWDER ORDERED FOR MOISTURE BUILD UP. PATIENT HAD A SECOND BOWEL MOVEMENT THAT HAD CLEAR AND BROWN LOOSE STOOLS. MORE MEPILIX DRESSINGS ADDED BECAUSE OF EXCORIATION & REDNESS.
--- NOTE | 2021-09-15 19:25 | NUR ---
Spiritual Care Visit Pt. is awake and in bed. Pt. welcomes my visit. Pt. is unsettled about when he will be discharged. Pt. did seem confused. Listened empathetically and normalized the Pt. experience. Pt. displayed evidence of wanting to end the spiritual care visit. With permission, prayed with Pt. Pt. verbalized gratitude for the spiritual care visit.
--- NOTE | 2021-09-16 04:37 | NUR ---
SHIFT SUMMARY PT ALERT TO PERSON, YELLS OUT AT TIMES,REFUSED CPAP AT HS, O2 SAT HIGH 80'S WHEN SLEEPING , O2 AT 1 L/M BNC STARTED AND O2 SAT 93-94%, CONTINUES TO HAVE LOOSE JELLY- LIKE CLEAR STOOL X1 AND THEN A LOOSE BROWN -LIQUID STOOL X1 , HARRY PATENT AND DRAINING SCAR URINE, DRSG ON COCCYX CHANGED WITH DARK TISSUE NOTED WITH SCANT AMT BLOOD , DRSG ON RT. LOWER LEG CHANGED AT 2200 WITH PURULENT DRAINAGE PRESENT AND 3 OPEN AREAS NOTED, SMALL OPEN AREA ALSO NOTED LT. LOWER LEG, PT TOLERATED DRSG CHANGES, SPLINT INTACT RT LEG, TURNED AND REPOSITIONED Q 2HRS , NO ACUTE DISTRESS THIS SHIFT.
--- NOTE | 2021-09-16 18:04 | NUR ---
Pt's primary CG Mignon has continued to encourage pt's family to ask pt to be discharged with Home Health instead of hospice. She states she can "whip the patient back into shape," and no amount of information given will change her mind. She has also been sharing her thoughts on the matter with pt's brother and son, who are also now requesting Home Health, and disparaging hospice as "giving someone some morphine and they ". I also explained that Dr. Delgado has expressed hospice would be the most appropriate discharge and give the most support to both patient and this family. They continue to disagree. I left the subject alone for today, as it was getting nowhere. Palliative will remain involed.
--- NOTE | 2021-09-16 18:48 | NUR ---
PATIENT AWAKE OR ALERT THIS MORNING. PATIENT ON NASAL CANNULA UPON ARRIVAL. DRYWALL HANGER UNABLE TO GET A GOOD BLOOD PRESSURE. RN NOTIFIED BUT DRYWALL HANGER OF LOW BLOOD PRESSURE. RN APPLIED A STERNAL RUB TO PATIENT AND HE WOKE UP. PATIENTS LIMBS STARTED TO PURFUSE MORE AND BLOOD PRESSURE BEGAN TO RISE. RECHECK WAS ACCEPTABLE WNL. MD PLANNING ON DISCHARGING PATIENT TO HOME PER FAMILY AND PRODUCTION SORTER REQUEST. PATIENT ATE MOST OF HIS MEALS TODAY AND TOOK HIS RX WITH NOT ISSUES. WILL REPORT TO ONCOMING RN UPON ARRIVAL.
--- NOTE | 2021-09-17 04:07 | NUR ---
SHIFT SUMMARY PT ALERT TO PERSON, CONFUSED BUT FOLLOWS SIMPLE COMMANDS,LUNGS CTA AND ON RA WITH O2 SATS IN THE LOW 90'S. CPAP ON AT HS PER RT, DRSG ON SACRUM/LT. BUTTOCK WAS CHANGED WITH ESCHAR AND SCANT AMT OF BLOODY DRAINAGE AND OTHER OPEN PRESSURES AREAS,HARRY CATHETER PATENT AND DRAINING DARK SCAR URINE, REPOSITIONED Q 2HRS, ORAL CARE DONE,NO ACUTE DISTRESS NOTED.
--- NOTE | 2021-09-17 17:47 | NUR ---
Pt's son Karri is pt's decision maker, please call him for all care planning. Karri Breaks [phone]
--- NOTE | 2021-09-17 18:42 | NUR ---
PATIENT ALERT UPON ARRIVAL. REPORT RECIEVED THAT PATIENT WAS ON BIPAP MOST OF THE NIGHT. PATIENT MORE LETHARGIC TODAY THAN THE PAST FEW DAYS. O2 SATS RUNNING FROM 90-94%. BP STILL LOW [place] HELD. SACRAL DRESSING CHANGED X2. STOOL CONSISTENCY IS STILL JELLY LIKE AND CLEAR. PATIENT ALERT ON ORIENTED TO SELF DURING SHIFT REPORT.
[2021-09-17 20:50] LABS: Alanine Aminotransfer (ALT/SGP 38 U/L (12-78); Albumin/Globulin Ratio 0.4 (0.8-1.8); Alk Phos 140 U/L (50-136); Anion Gap 6 mmol/L (6-16); Aspartate Aminotrans (AST/SGOT 34 U/L (12-37); Bilirubin, Total 1.1 mg/dL (0.1-1.0); Blood Urea Nitrogen 68 mg/dL (8-24); Bun/Creatinine Ratio 66.7 (12.0-20.0); CO2, Blood 30 mmol/L (21-32); Calcium, Blood 8.5 mg/dL (8.5-10.1); Chloride, Blood 118 mmol/L (98-108); Creatinine, Blood 1.02 mg/dL (0.60-1.20); Globulin, Blood 5.2 g/dL (2.2-4.0); Glomerular Filtration Rate >60 (60-); Glucose, Blood 145 mg/dL (70-99); Sodium, Blood 154 mmol/L (136-145); Total Protein, Blood 7.2 g/dL (6.4-8.2)
--- NOTE | 2021-09-18 04:17 | NUR ---
SHIFT SUMMARY PT CONFUSED THROUGHOUT THE NIGHT. PT APPEARS VERY PAINFUL WITH ANY SORT OF MOVEMENT, ESPECIALLY IF INVOLVING RLE. MEDICATED X 1 EARLY IN SHIFT FOR PAIN. PT SOMEWHAT LETHARGIC FOLLOWING. PT DID ALLOW FOR CPAP TO BE WORN WHEN MORE LETHARGIC. OTHERWISE, PT WOULD PULL OFF CPAP. HARRY CATHETER PATENT AND DRAINING. URINE DARK YELLOW. IMMOBOLIZER TO RLE. SKIN TEARS AND SMALL ABRASIONS SCATTERED THROUGHOUT, ESPECIALLY TO BUE'S. LARGE PRESSURE WOUNDS TO GLUTEAL/SACRAL AREA. TISSUE NECROTIC, HARD IN SOME SPOTS. OPENING AND TUNNELING. DRESSING CHANGED TO GLUTEAL/COCCYX. PT HAS GENERAL EDEMA THROUGHOUT. PT HAD ONE UNFORMED BOWEL MOVEMENT. VITAL SIGNS STABLE. NO ACUTE CHANGES THIS EVENING.
[2021-09-18 05:47] LABS: BASOPHILS ABSOLUTE AUTO 0.04 K/mm3 (0.00-0.23); BASOPHILS PERCENT AUTO 0 % (0-2); EOSINOPHILS ABSOLUTE AUTO 0.07 K/mm3 (0.00-0.68); EOSINOPHILS PERCENT AUTO 1 % (0-6); Hematocrit 26.1 % (37.0-53.0); Hemoglobin 7.9 g/dL (13.5-17.5); IMMATURE GRAN ABSOLUTE AUTO 0.09 K/mm3 (0.00-0.10); IMMATURE GRAN PERCENT AUTO 1 % (0-1); LYMPHOCYTES ABSOLUTE AUTO 0.73 K/mm3 (0.84-5.20); LYMPHOCYTES PERCENT AUTO 5 % (21-46); MONOCYTES ABSOLUTE AUTO 1.03 K/mm3 (0.16-1.47); MONOCYTES PERCENT AUTO 7 % (4-13); Mean Corpuscular HGB 28.8 pg (26.0-34.0); Mean Corpuscular HGB Conc 30.3 g/dL (31.5-36.5); Mean Corpuscular Volume 95 fL (80-100); Mean Platelet Volume 10.5 fL (9.1-12.4); NEUTROPHILS ABSOLUTE AUTO 12.82 K/mm3 (1.96-9.15); NEUTROPHILS PERCENT AUTO 87 % (41-73); NRBC ABSOLUTE 0.02 K/mm3 (0.00-0.02); NRBC Auto 0.1 /100 WBC (0.0-0.2); Platelet Count 283 K/mm3 (150-400); RDW Coefficient Variation 21.1 % (11.7-14.2); RDW Standard Deviation 70.5 fL (35.1-46.3); Red Blood Cell Count 2.74 M/mm3 (4.30-5.90); White Blood Cell Count 14.78 K/mm3 (4.00-11.30)
[2021-09-18 06:23] LABS: Magnesium, Blood 2.5 mg/dL (1.6-2.4); Phosphorus, Blood 3.4 mg/dL (2.5-4.9)
--- NOTE | 2021-09-18 16:21 | NUR ---
Case conference today with Dr Duran and rn charge re: current status, assistant terminal manager prognosis, plan of care currently and family contact per Dr planned for today. No visit made/indicated today. Plan to follow with EFM Drs and CM to assist with advanced care planning and s/s management. Pt appears to be failure to thrive with primary concern for protein jimena malnutrition, wounds that appear long standing and chronic in nature & need for safe d/c plan to best meet pt's needs. Pt is confused, has poor intake and is unable to participate in therapies. His most recent fall and leg fx, combined with re- sulting increased imobility appear to be a tipping point for pt, who was already medically fragile with multple chronic, severe comorbidites prior to this admission. .
--- NOTE | 2021-09-18 17:36 | NUR ---
PATIENT ALERT. PT COMPLAINING OF LEG PAIN, MEDICATED PER EMR NOW RESTING COMFORTABLY. ALL WOUND CARE DRESSINGS CHANGED, MD CAME IN TO SEE SACRUM WOUND. PATIENT PLACED ON 1.5L O2 DUE TO SATURATION GOING DOWN TO 86%, NOW O2 IS 96%. CALL LIGHT PLACED WITHIN REACH. BED IN LOWEST POSITION.
[2021-09-18 20:14] LABS: Alanine Aminotransfer (ALT/SGP 41 U/L (12-78); Albumin, Blood 2.1 g/dL (3.4-5.0); Albumin/Globulin Ratio 0.4 (0.8-1.8); Alk Phos 150 U/L (50-136); Anion Gap 4 mmol/L (6-16); Aspartate Aminotrans (AST/SGOT 34 U/L (12-37); Blood Urea Nitrogen 60 mg/dL (8-24); Bun/Creatinine Ratio 62.2 (12.0-20.0); CO2, Blood 29 mmol/L (21-32); Calcium, Blood 8.4 mg/dL (8.5-10.1); Chloride, Blood 123 mmol/L (98-108); Creatinine, Blood 0.97 mg/dL (0.60-1.20); Glomerular Filtration Rate >60 (60-); Glucose, Blood 159 mg/dL (70-99); Potassium, Blood 4.2 mmol/L (3.5-5.5); Sodium, Blood 156 mmol/L (136-145); Total Protein, Blood 7.1 g/dL (6.4-8.2)
--- NOTE | 2021-09-19 04:44 | NUR ---
SHIFT SUMMARY PT MORE AWAKE THIS EVENING. AWAKE MUCH OF THE NIGHT, FALLING ASLEEP FINALLY AROUND 0400. REMAINS VERY CONFUSED. BECOMES FRIGHTENED AND IS VERY PAINFUL WITH REPOSITIONING. REQUIRES Q 2 HR REPOSITIONING. VERY LARGE PRESSURE SORE TO SACRUM. REPLACED MEPILEX THIS EVENING. PT HAD AN EXTRA LARGE UNFORMED STOOL THIS EVENING. R LEG REMAINED IN IMMOBOLIZER. HARRY CATH PATENT AND DRAINING. URINE IS DARK. HYPOTENSION EARLY IN SHIFT, IMPROVED THIS AM. THIS HAS NOT BEEN ABNORMAL FOR PT THIS ADMISSION. VITAL SIGNS HAVE BEEN STABLE. NO ACUTE CHANGES THIS EVENING.
[2021-09-19 05:12] LABS: BASOPHILS ABSOLUTE AUTO 0.05 K/mm3 (0.00-0.23); BASOPHILS PERCENT AUTO 0 % (0-2); EOSINOPHILS PERCENT AUTO 1 % (0-6); Hematocrit 26.4 % (37.0-53.0); Hemoglobin 7.9 g/dL (13.5-17.5); IMMATURE GRAN ABSOLUTE AUTO 0.08 K/mm3 (0.00-0.10); IMMATURE GRAN PERCENT AUTO 1 % (0-1); LYMPHOCYTES ABSOLUTE AUTO 0.74 K/mm3 (0.84-5.20); LYMPHOCYTES PERCENT AUTO 5 % (21-46); MONOCYTES PERCENT AUTO 7 % (4-13); Mean Corpuscular HGB 28.6 pg (26.0-34.0); Mean Corpuscular HGB Conc 29.9 g/dL (31.5-36.5); Mean Corpuscular Volume 96 fL (80-100); Mean Platelet Volume 10.8 fL (9.1-12.4); NEUTROPHILS ABSOLUTE AUTO 13.39 K/mm3 (1.96-9.15); NEUTROPHILS PERCENT AUTO 87 % (41-73); NRBC ABSOLUTE 0.02 K/mm3 (0.00-0.02); NRBC Auto 0.1 /100 WBC (0.0-0.2); Platelet Count 265 K/mm3 (150-400); RDW Coefficient Variation 21.2 % (11.7-14.2); RDW Standard Deviation 72.8 fL (35.1-46.3); Red Blood Cell Count 2.76 M/mm3 (4.30-5.90); White Blood Cell Count 15.36 K/mm3 (4.00-11.30)
[2021-09-19 05:35] LABS: Magnesium, Blood 2.5 mg/dL (1.6-2.4); Phosphorus, Blood 3.3 mg/dL (2.5-4.9)
--- NOTE | 2021-09-19 18:30 | NUR ---
HYPOXIA R/T: POTENTIAL ASPIRATION EVENT RN IN ROOM FEEDING PATIENT DINNER. PATIENT SWALLOWING AFTER EACH BITE WITHOUT ANY COUGHING. SLOW PACE MAINTAINED. PATIENT HAD SUDDEN ONSET OF DIFFICULTY KEEPING SATURATIONS ABOVE 90%. PATIENT WOULD DESAT TO LOW 77% ON THE 3L VIA NC. PROBE SECURELY ON PATIENT'S FINGER. BASES OF LUNGS CLEAR. PATIENT DID NOT APPEAR SHORT OF BREATH. URGENT CALLED RT AND REHAB NURSING TECH. BOTH IN ROOM TO ASSIST. PATIENT INITIALLY PLACED ON NON-REBREATHER RT ASSESSED. DISCUSSED EVENTS LEADING UP TO SITUATION. REHAB NURSING TECH PERFORMED NASAL SUCTIONING PER PRIOR TRAINING. SECRETIONS SUCTIONED OUT. RT PLACED PATIENT ON CPAP. PATIENT SATTING AT 98-100% ON CPAP WITH 5L BLEED IN OF O2. VITALS STABLE. PATIENT CONTINUES TO APPEAR TO BE IN NO DISTRESS. DOWN-GRADED TO NPO UNTIL SPEECH CAN EVALUATE THE PATIENT. UPDATE: BY THE END OF SHIFT, PATIENT HAD PULLED OFF THE CPAP AND WAS SATTING AT 95% ON ROOMAIR. RT NOTIFIED AND WILL CONTINUE TO MONITOR.
--- NOTE | 2021-09-19 19:43 | NUR ---
END OF SHIFT SUMMARY: PATIENT DENIED FERNIE THROUGHOUT THE SHIFT. PATIENT STARTED THE SHIFT VERY SLEEPY. PATIENT WAS WIDE AWAKE FROM ABOUT 10AM - 2PM. PATIENT STARTED WITH GARBLED NONSENSICAL SPEECH THAT CLEARED THE DAY PROGRESSED (FOR EXAMPLE: ABLE TO SAY, THANK YOU FOR NOT MAKING IT HURT). PATIENT HAD A MODERATE APPETITIE (ABOUT 50% OF EACH TRAY PLUS SUPPLEMENT). PATIENT AT ONE POINT EXPRESSED "I'M HUNGRY". PATIENT REPOSITIONED THROUGHOUT THE DAY. WOUND CARE PERFORMED. PATIENT TOLERATED BOTH WELL. PATIENT STABLE ON 3L VIA NC UNTIL THE END OF SHIFT (SEE NURSES NOTE RE: HYPOXEMIA RE: POTENTIAL ASPIRATION EVENT). URINE IN HARRY STARTED DARK YELLOW, BUT CLEARED TO A YELLOW THE DAY PROGRESSED.
[2021-09-19 20:42] LABS: Alanine Aminotransfer (ALT/SGP 39 U/L (12-78); Albumin/Globulin Ratio 0.4 (0.8-1.8); Alk Phos 142 U/L (50-136); Anion Gap 2 mmol/L (6-16); Aspartate Aminotrans (AST/SGOT 31 U/L (12-37); Bilirubin, Total 0.9 mg/dL (0.1-1.0); Blood Urea Nitrogen 58 mg/dL (8-24); Bun/Creatinine Ratio 65.4 (12.0-20.0); CO2, Blood 31 mmol/L (21-32); Calcium, Blood 8.4 mg/dL (8.5-10.1); Chloride, Blood 125 mmol/L (98-108); Creatinine, Blood 0.89 mg/dL (0.60-1.20); Globulin, Blood 5.3 g/dL (2.2-4.0); Glomerular Filtration Rate >60 (60-); Glucose, Blood 122 mg/dL (70-99); Sodium, Blood 158 mmol/L (136-145); Total Protein, Blood 7.3 g/dL (6.4-8.2)
[2021-09-20 04:54] LABS: BASOPHILS ABSOLUTE AUTO 0.04 K/mm3 (0.00-0.23); BASOPHILS PERCENT AUTO 0 % (0-2); EOSINOPHILS PERCENT AUTO 1 % (0-6); Hematocrit 25.6 % (37.0-53.0); Hemoglobin 7.6 g/dL (13.5-17.5); IMMATURE GRAN ABSOLUTE AUTO 0.09 K/mm3 (0.00-0.10); IMMATURE GRAN PERCENT AUTO 1 % (0-1); LYMPHOCYTES ABSOLUTE AUTO 0.66 K/mm3 (0.84-5.20); LYMPHOCYTES PERCENT AUTO 4 % (21-46); MONOCYTES ABSOLUTE AUTO 0.85 K/mm3 (0.16-1.47); MONOCYTES PERCENT AUTO 6 % (4-13); Mean Corpuscular HGB 28.6 pg (26.0-34.0); Mean Corpuscular HGB Conc 29.7 g/dL (31.5-36.5); Mean Corpuscular Volume 96 fL (80-100); Mean Platelet Volume 10.5 fL (9.1-12.4); NEUTROPHILS ABSOLUTE AUTO 13.69 K/mm3 (1.96-9.15); NEUTROPHILS PERCENT AUTO 89 % (41-73); NRBC ABSOLUTE 0.03 K/mm3 (0.00-0.02); NRBC Auto 0.2 /100 WBC (0.0-0.2); Platelet Count 250 K/mm3 (150-400); RDW Coefficient Variation 21.1 % (11.7-14.2); RDW Standard Deviation 71.8 fL (35.1-46.3); Red Blood Cell Count 2.66 M/mm3 (4.30-5.90); White Blood Cell Count 15.43 K/mm3 (4.00-11.30)
--- NOTE | 2021-09-20 05:02 | NUR ---
SHIFT SUMMARY PT ON RA MOST OF THE NIGHT. DID EVENTUALLY PLACE PT ON 1 L VIA NC TO KEEP O2 SATS > 90%. PT REFUSED CPAP THROUGHOUT THE NIGHT, PULLING IT OFF WHENEVER IT IS PLACED ON. PT REMAINS VERY CONFUSED. AWAKE MUCH OF THE NIGHT TONIGHT. YELLING OUT FREQUENTLY. PT IS PALE. DRESSINGS TO COCCYX, BENEATH IMMOBOLIZER, ON BUE'S, AND PANNUS REMAINED C/D/I. NO BOWEL MOVMENTS SO FAR THIS SHIFT. HARRY CATHETER PATENT AND DRAINING. URINE IS DARK. PT REMAINED NPO FROM POSSIBLE ASPIRATION EVENT AT SHIFT CHANGE. PT HYPOTENSIVE THIS AM BUT HAS TRENDED THIS WAY FOR SOME TIME. VITAL SIGNS ARE STABLE.
[2021-09-20 05:15] LABS: Magnesium, Blood 2.5 mg/dL (1.6-2.4); Phosphorus, Blood 3.4 mg/dL (2.5-4.9)
--- NOTE | 2021-09-20 11:27 | NUR ---
Ethics consultation service requested. Case history, probable medical trajectory, and social constellation reviewed. Clinical attestation affirms that the principal is elegible for hospice matriculation, but the CG's in combination with the principals decision maker are skeptical of this non-aggressive path. They have strongly communicated a preference for d/c home with outpatient / ambulatory support with the end goal of rehabilitation. From a clinical perspective, given the patients progressive decline, and unresolved co-morbitites, this is ostensibly an unworkable plan. If the principal is sufficiently stable for transfer, and encouragements to the contrary continue to be resisted, then I would recommend that a home health order be placed for the patient to be formally evaluated for this option. If he does not satisfy the basic criteria for ambulatory service enrollment, those results should be disseminated to the proxy and his care team for deeper consideration, and alternative treatment planning. If they elect to take him home despite the lack of external agency support i.e., not on home health or hospice, then the risks should be clearly articulated, the course discouraged, but ultimately the proxy reserves the legal right to make that choice. I would suggest that if the case develops towards this less than ideal hypothesized outcome, that we have them execute an AMA prior to discharge. Thank you for this consult. Mikael Middleton, PhD, GENIA
--- NOTE | 2021-09-20 16:29 | NUR ---
Wound care; Spoke with Dr. Duran regarding Pt, wounds. D/t poor prognosis conservative treatment is recommended. Keep wounds clean and dry, cover with bordered foam, change daily, soiled or dislodged. Specialty air matress. Reposition q 2hrs.
[2021-09-20 19:23] LABS: Alanine Aminotransfer (ALT/SGP 40 U/L (12-78); Albumin/Globulin Ratio 0.4 (0.8-1.8); Alk Phos 145 U/L (50-136); Anion Gap 3 mmol/L (6-16); Aspartate Aminotrans (AST/SGOT 42 U/L (12-37); Bilirubin, Total 1.4 mg/dL (0.1-1.0); Blood Urea Nitrogen 56 mg/dL (8-24); CO2, Blood 32 mmol/L (21-32); Calcium, Blood 8.6 mg/dL (8.5-10.1); Chloride, Blood 128 mmol/L (98-108); Creatinine, Blood 1.12 mg/dL (0.60-1.20); Globulin, Blood 5.7 g/dL (2.2-4.0); Glomerular Filtration Rate >60 (60-); Glucose, Blood 92 mg/dL (70-99); Potassium, Blood 4.4 mmol/L (3.5-5.5); Sodium, Blood 163 mmol/L (136-145); Total Protein, Blood 7.7 g/dL (6.4-8.2)
[2021-09-21 02:07] LABS: BASOPHILS ABSOLUTE AUTO 0.04 K/mm3 (0.00-0.23); BASOPHILS PERCENT AUTO 0 % (0-2); EOSINOPHILS ABSOLUTE AUTO 0.04 K/mm3 (0.00-0.68); EOSINOPHILS PERCENT AUTO 0 % (0-6); Hematocrit 27.1 % (37.0-53.0); IMMATURE GRAN ABSOLUTE AUTO 0.08 K/mm3 (0.00-0.10); IMMATURE GRAN PERCENT AUTO 1 % (0-1); LYMPHOCYTES ABSOLUTE AUTO 0.61 K/mm3 (0.84-5.20); LYMPHOCYTES PERCENT AUTO 4 % (21-46); MONOCYTES ABSOLUTE AUTO 0.78 K/mm3 (0.16-1.47); MONOCYTES PERCENT AUTO 5 % (4-13); Mean Corpuscular HGB 28.7 pg (26.0-34.0); Mean Corpuscular HGB Conc 29.5 g/dL (31.5-36.5); Mean Corpuscular Volume 97 fL (80-100); Mean Platelet Volume 10.5 fL (9.1-12.4); NEUTROPHILS ABSOLUTE AUTO 15.84 K/mm3 (1.96-9.15); NEUTROPHILS PERCENT AUTO 91 % (41-73); NRBC ABSOLUTE 0.03 K/mm3 (0.00-0.02); NRBC Auto 0.2 /100 WBC (0.0-0.2); Platelet Count 265 K/mm3 (150-400); RDW Coefficient Variation 21.3 % (11.7-14.2); RDW Standard Deviation 74.9 fL (35.1-46.3); Red Blood Cell Count 2.79 M/mm3 (4.30-5.90); White Blood Cell Count 17.39 K/mm3 (4.00-11.30)
[2021-09-21 02:25] LABS: Magnesium, Blood 2.6 mg/dL (1.6-2.4)
[2021-09-21 02:55] LABS: Alanine Aminotransfer (ALT/SGP 38 U/L (12-78); Albumin, Blood 1.9 g/dL (3.4-5.0); Albumin/Globulin Ratio 0.4 (0.8-1.8); Alk Phos 132 U/L (50-136); Anion Gap 3 mmol/L (6-16); Aspartate Aminotrans (AST/SGOT 39 U/L (12-37); Bilirubin, Total 1.4 mg/dL (0.1-1.0); Blood Urea Nitrogen 55 mg/dL (8-24); Bun/Creatinine Ratio 52.9 (12.0-20.0); CO2, Blood 32 mmol/L (21-32); Calcium, Blood 8.5 mg/dL (8.5-10.1); Chloride, Blood 127 mmol/L (98-108); Creatinine, Blood 1.04 mg/dL (0.60-1.20); Globulin, Blood 5.4 g/dL (2.2-4.0); Glomerular Filtration Rate >60 (60-); Glucose, Blood 124 mg/dL (70-99); Phosphorus, Blood 3.3 mg/dL (2.5-4.9); Potassium, Blood 4.1 mmol/L (3.5-5.5); Sodium, Blood 162 mmol/L (136-145); Total Protein, Blood 7.3 g/dL (6.4-8.2)
--- NOTE | 2021-09-21 05:29 | NUR ---
NEWS PRODUCER SUMMARY ADMITTED FOR RIGHT DISTAL FEMORAL FRACTURE. PT IS A DNR. HE IS ON ENTERIC PRECAUTIONS FOR C. DIFF. PT IS NOT A SURGICAL CANDIDATE. PT WAS ALERT AND ORIENTED TO SELF ONLY, HALLUCINATING AND GRABBING AT THINGS THAT ARE NOT THERE. HE HAD MUMBLING SPEECH AND SKIN THAT WAS COOL AND CLAMMY. CHEMBG WAS 65. PT ALSO HAD CRITICAL SODIUM OF 163. HOSPITALIST CONTACTED AND PT PLACED ON ONE LITER OF D5 AT 75 ML/HR WITH IMPROVEMENT IN BLOOD SUGAR. CHEM PANEL WILL BE CHECKED EVERY 6 HOURS X5 ORDERS. SODIUM OF 162 THIS AM. HOSPITALIST RECOMMENDED CONTINUE D5 DRIP. HARRY IN PLACE DRAINING CLOUDY YELLOW URINE. HE HAS AN UNSTAGEABLE BILATERAL GLUTEAL WOUND WITH TUNNELING AND MALODOROUS AND DARK BROWN DRAINAGE. WOUND IS BLACK WITH ESCHAR AND NEW AREAS OF REDNESS AND BLEEDING. MEDICATIONS WERE HELD DUE TO AMS AND ASPIRATION RISK.
[2021-09-21 08:48] LABS: Alanine Aminotransfer (ALT/SGP 40 U/L (12-78); Albumin, Blood 1.8 g/dL (3.4-5.0); Albumin/Globulin Ratio 0.3 (0.8-1.8); Alk Phos 125 U/L (50-136); Anion Gap 0 mmol/L (6-16); Aspartate Aminotrans (AST/SGOT 61 U/L (12-37); Bilirubin, Total 1.4 mg/dL (0.1-1.0); Blood Urea Nitrogen 54 mg/dL (8-24); Bun/Creatinine Ratio 48.2 (12.0-20.0); CO2, Blood 34 mmol/L (21-32); Calcium, Blood 8.5 mg/dL (8.5-10.1); Chloride, Blood 127 mmol/L (98-108); Creatinine, Blood 1.12 mg/dL (0.60-1.20); Globulin, Blood 5.3 g/dL (2.2-4.0); Glomerular Filtration Rate >60 (60-); Glucose, Blood 150 mg/dL (70-99); Potassium, Blood 4.1 mmol/L (3.5-5.5); Sodium, Blood 161 mmol/L (136-145); Total Protein, Blood 7.1 g/dL (6.4-8.2)
--- NOTE | 2021-09-21 09:20 | NUR ---
Case conferenced with pt's bedside RN, who voiced concerns r/t pt's suffering and the possibility that wound may be deep enough to be tunneled and seeping stool. Pt grimacing and appears acutely uncomfortable. Worsening, Labs, critical sodium noted. Plan to review plan of care with , who has maintained contact with pt's brother and son as decision makers.
--- NOTE | 2021-09-21 15:39 | NUR ---
[facility] comfort care note: Multiple case conferences t/o day with RN, CM, . Per Dr's communication with pt's son, decision made for pt to be transitioned to comfort care. Comfort care orders entered by with confirmation of additional changes made, implemented & communicated to RN. During AM visit pt appeared in moderate discomfort with pain and anxiety. Pt wanted sips of water but did not swallow when trialed with teaspoon of liquid per ST earlier. Please see ST and RN notes. Pt is confused and unable to communicate clearly when asked re: s/s. Pt is demonstrating nonverbal indicators of pain at rest. Per , son does not want previous caregivers informed of change of goals and current plan of care and does not want them to participate in any medical decision making. Other [facility] team members updated on all of above.
--- NOTE | 2021-09-21 16:57 | NUR ---
SHIFT SUMMARY PATIENT TRANSITIONED TO COMFORT CARE THIS SHIFT. PAIN MANAGEMENT PER EMAR THOUGH THIS NURSE GAVE ONE DOSE OF ROXINOL 10MG ONCE AND PATIENT IS STILL SLEEPING COMFORTABLY AT THIS TIME. WOUND CARE DONE THIS AM AND PRN FOR SOILED DRESSINGS. PT REPOSITIONED FOR COMFORT. SPEECH THERAPY EVALUATED PATIENT PRIOR TO TRANSITION TO COMFORT CARE, SEE NOTE. PT WAS MADE NPO AT THAT TIME. BED IN LOW POSITION, CALL LIGHT WITHIN REACH.
--- NOTE | 2021-09-21 20:08 | NUR ---
PATIENT'S SON TAMAR MCDUFFIE CALLED TO EXPRESS CONCERN ABOUT PATIENT BEING ON COMFORT CARE WITHOUT BEING ON OXYGEN, THIS RN EXPLAINED PATIENT CAN STILL GET OXYGEN IF THAT MAKES HIM COMFORTABLE. THAT IT DOESN'T NOT NECESSARILY MEAN HE HAS TO BE OFF OXYGEN IF HE NEEDS IT FOR COMFORT. THE SON STATED HE WANTS TO SPEAK TO THE PRIMARY PHYSICIAN IN THE MORNING ABOUT MORE CLARIFICATION AND WANTS THE COMFORT CARE REVERSED FOR NOW UNTIL HE DOES. DR THOMAS IS ONCALL AND PLACED A CALL ACCROSS AND HE SAID I OK TO DC COMFORT CARE, UNTIL THE PRIMARY PHYSICIAN EVALUATES NO NEW ORDERS RECEIVED WILL CONTINUE TO MONITOR.
--- NOTE | 2021-09-22 10:15 | NUR ---
THIS NURSE AND COLLINS WATT REPOSTIONED THE PATIENT FOR COMFORT. THIS NURSE REPLACED THE DRESSING ON THE COCCYX. ORAL CARE DONE, AND MOISTURIZER APPIED.
--- NOTE | 2021-09-22 11:42 | NUR ---
Spiritual Care visit. Pt. was soundly resting, so based upon our earlier visits I prayed a pastoral blessing over the pt. consistant with his prognosis.
--- NOTE | 2021-09-22 13:33 | NUR ---
THE PATIENT WAS MEDICATED FOR DYSPNEA, REPOSTIONED FOR COMFORT AND SUCTIONED.
--- NOTE | 2021-09-22 16:23 | NUR ---
THIS NURSE AND COLLINS WATT REPOSTIONED PATIENT ON RIGHT SIDE. THE PATIENT RECEIVED MEDICATION FOR PAIN/AIR HUNGER. THIS NURSE SUCTIONED THE PATIENT, AND MOSITURIZER APPLIED.
--- NOTE | 2021-09-22 17:34 | NUR ---
THE PATIENT WAS SUCTIONED, AND ATROPINE DROPS APPLIED FOR SECRETIONS.
--- NOTE | 2021-09-22 18:49 | NUR ---
PATIENT SUCTIONED, ATROPINE DROPS APPLIED.
--- NOTE | 2021-09-22 22:12 | NUR ---
PATIENT WAS TAKEN OVER DROWSY AND WITH LOTS OF SECRETIONS AND HE WAS GARGLING/GRUNTING. HE WAS SUCTIONED AND ATROPINE DROPS FOR EXCESSIVE SECRETIONS ADMINISTERED, SEE EMAR. THE BLUNGER WAS ROUNDING ON PATIENT AND OBSERVED THAT PATIENT WAS NOT HAVING ANY RESPIRATORY EFFORT OR ANY HEART RATE. THE BLUNGER INFORMED THE OUTBOUND SALES AGENT KISHA, WHO ALSO COMFIRMED THE PT CLINICALLY AT 2100,09/22/2021. ONCALL PHYSICIAN WAS INFORMED AND THE FAMILY WAS ALSO INFORMED. THE OUTBOUND SALES AGENT IS COMPILING THE PAPERWORK.
== END 2021-09-22 21:00 | DRG 533 ==
LOC: ER 11:16 → SURS 11:17 → MEDS 08-31 22:37
PROVIDERS: Emergency Medicine; Family Medicine; Internal Medicine; Internal Medicine Endocrinology, Diabetes & Metabolism; ADMIT Internal Medicine
PROC: 5A09557 Assistance with Respiratory Ventilation, Greater than 96 Consecutive Hours, Continuous Positive Airway Pressure (ICD-10-PCS; principal; 2021-08-27)
DX: S72.451A Displaced supracondylar fracture without intracondylar extension of lower end of right femur, initial encounter for closed fracture (principal); L89.313 Pressure ulcer of right buttock, stage 3; L89.323 Pressure ulcer of left buttock, stage 3; S82.001A Unspecified fracture of right patella, initial encounter for closed fracture; I48.21 Permanent atrial fibrillation; I50.32 Chronic diastolic (congestive) heart failure; N17.9 Acute kidney failure, unspecified; Z68.41 Body mass index [BMI] 40.0-44.9, adult; A04.72 Enterocolitis due to Clostridium difficile, not specified as recurrent; R18.8 Other ascites; E46 Unspecified protein-calorie malnutrition; Z66 Do not resuscitate; Z51.5 Encounter for palliative care; D72.829 Elevated white blood cell count, unspecified; I73.9 Peripheral vascular disease, unspecified; E11.51 Type 2 diabetes mellitus with diabetic peripheral angiopathy without gangrene; D69.6 Thrombocytopenia, unspecified; L89.152 Pressure ulcer of sacral region, stage 2; K74.60 Unspecified cirrhosis of liver; I25.10 Atherosclerotic heart disease of native coronary artery without angina pectoris; M17.11 Unilateral primary osteoarthritis, right knee; I87.2 Venous insufficiency (chronic) (peripheral); I35.0 Nonrheumatic aortic (valve) stenosis; E87.6 Hypokalemia; I11.0 Hypertensive heart disease with heart failure; E78.5 Hyperlipidemia, unspecified; E66.01 Morbid (severe) obesity due to excess calories; J44.9 Chronic obstructive pulmonary disease, unspecified; D63.8 Anemia in other chronic diseases classified elsewhere; G47.33 Obstructive sleep apnea (adult) (pediatric); E29.1 Testicular hypofunction; M10.9 Gout, unspecified; Z96.642 Presence of left artificial hip joint; Z88.8 Allergy status to other drugs, medicaments and biological substances; Z79.82 Long term (current) use of aspirin; Z79.899 Other long term (current) drug therapy; Z95.1 Presence of aortocoronary bypass graft; Z98.890 Other specified postprocedural states; Z89.422 Acquired absence of other left toe(s); Z95.0 Presence of cardiac pacemaker; W18.30XA Fall on same level, unspecified, initial encounter
CPT/HCPCS: 29505; 36415; 36600; 70450; 71045; 73552; 73700; 76377; 76705; 80048; 80053; 82140; 82248; 82728; 82803; 82947; 83735; 84100; 85025; 86317; 86803; 87324; 87340; 87493; 92526; 92610; 93005; 93010; 94660; 94762; 96372; 96374-59; 96375; 96376; 97110; 97110-CO; 97110-CQ; 97129; 97163; 97166; 97530; 97530-CQ; 97535; 97535-CO; 99285-25; A9270; G0378; J1650; J1940; J2060; J3010; J3480; J7030; J7070